=== PATIENT | female | born 1975 | race Caucasian/White ===

== ENCOUNTER 2021-01-21 11:35 | Outpatient (CLI) | payer BC, SELFPAY ==
--- NOTE | 2021-01-21 12:55 | DI.RAD_ITS ---
Exam(s) XR KNEE LT 3V AP,LAT,JANINA EXAM: XR KNEE LT 3V AP,LAT,JANINA CLINICAL HISTORY: left knee swelling, effusion, M25.462. TECHNIQUE: 2D digital imaging was performed. COMPARISON: No exams were available for comparison FINDINGS: BONES: No acute fracture is present. No bony destructive lesion is seen. There are findings of a prio r ACL repair. JOINTS: The knee is normally aligned. No joint effusion is seen. SOFT TISSUE: Normal. IMPRESSION: No acute abnormality. DATA REPOSITORY: RADIATION DOSE DELIVERED:
== END 2021-01-21 11:55 ==
PROVIDERS: PCP Nurse Practitioner Family; Visit Provider Nurse Practitioner Family
DX: M25.562 Pain in left knee (principal); M25.462 Effusion, left knee
CPT/HCPCS: 73562

== ENCOUNTER 2021-04-06 16:36 | Outpatient (REF) | payer BC, SELFPAY ==
--- NOTE | 2021-04-06 15:30 | PAPFT_PTH ---
PATIENT: Nelly Zapata LOC: [facility] U#:[id number] AGE/SX: 45/F ROOM: RE04/06/[address]: CHELA Adler : 1975 BED: DIS: 04/06/2021 SPEC #: [id number] RECD: 04/06/21 18:19 STATUS: GAIL REQ #: [id number] SARITA: 04/06/21 15:[address]: La Ag DEPT: [facility] Cytology RECD BY: Aleyda Pabon ENTERED: 04/06/21 18:20 SP TYPE: PAPFT NELLY DR: Cristhian Dawkins, MEL Tissues: 1 - CX/ENDOCX FOR PAP SMEARS Procedures: PAP THIN PREP/UVM Screening HPV DNA PROBE Comments: [id number]
== END 2021-04-06 16:37 | disposition home or self-care (01) ==
LOC: LBN 16:36
PROVIDERS: PCP Nurse Practitioner Family; Visit Provider Nurse Practitioner Family
DX: Z12.4 Encounter for screening for malignant neoplasm of cervix (principal); Z11.51 Encounter for screening for human papillomavirus (HPV)
CPT/HCPCS: 88142; 87624

== ENCOUNTER 2021-04-08 03:16 | Outpatient (CLI) | payer BC, SELFPAY ==
[2021-04-08 16:34] LABS: Hemoglobin A1C 5.2 % (<5.7)
[2021-04-08 17:21] LABS: ALT 33 U/L (14-59); AST 26 U/L (15-37); Albumin 4.1 g/dL (3.4-5.0); Alkaline Phosphatase 67 U/L (46-116); Anion Gap 7.5 mmol/L (3-11); BUN 13 mg/dL (7-18); Bilirubin, Total 0.4 mg/dL (0.2-1.0); CO2 29.5 mmol/L (21.0-32.0); CREATININE 0.9 mg/dL (0.55-1.02); Calcium 8.8 mg/dL (8.5-10.1); Calculated LDL 112 mg/dL (<100); Chloride 103 mmol/L (98-107); Cholesterol 234 mg/dL (<200); Glucose 119 mg/dL (74-106); HDL Cholesterol 88 mg/dL (40-60); Potassium 3.6 mmol/L (3.5-5.1); Sodium 140 mmol/L (136-145); TSH (W/Ref FT4) 2.97 uIU/mL (0.36-3.74); Total Protein 7.1 g/dL (6.4-8.2); Triglyceride 174 mg/dL (<150)
== END 2021-04-08 03:17 | disposition home or self-care (01) ==
LOC: LBO 03:16
PROVIDERS: PCP Nurse Practitioner Family; Visit Provider Nurse Practitioner Family
DX: Z00.00 Encounter for general adult medical examination without abnormal findings (principal); Z13.1 Encounter for screening for diabetes mellitus; Z13.220 Encounter for screening for lipoid disorders; Z13.29 Encounter for screening for other suspected endocrine disorder
CPT/HCPCS: 36415; 80053; 80061; 83036; 84443

== ENCOUNTER 2021-10-14 17:47 | Outpatient (REF) | payer BC, SELFPAY | END 2021-10-14 17:48 | disposition home or self-care (01) | LOC: LBN 17:47 | PROVIDERS: PCP Nurse Practitioner Family; Visit Provider Physician Assistant Medical | DX: R30.0 Dysuria (principal) | CPT/HCPCS: 87086 ==

== ENCOUNTER 2022-02-15 14:27 | Emergency (ER) | payer BC, SELFPAY ==
[2022-02-15 14:30] VITALS: BP 131/87; PULSE 69; RESP 18; TEMP 36.8; O2SAT 98
--- NOTE | 2022-02-15 14:58 | NUR.NOTE ---
Nursing Note: Animal bite report form faxed to [facility] Officer for follow up. Voice mail message left on his phone to notify him. Becky Luo
[2022-02-15] MEDS: Rabies Immune Globulin 300 UNIT/ML VIAL 1133.98 UNIT IM (15:51)
--- NOTE | 2022-02-15 15:53 | ED.GENADUL_ITS ---
Discharge Plan Disposition Patient Disposition: HOME Condition: Stable Discharge Details Clinical Impression: Encounter for prophylactic administration of rabies immune globulin Primary Care Provider: Cristhian Dawkins ED Provider: Aleyda Lanza Home Meds and New Rx's Prescriptions: Continued cholecalciferol (vitamin D3) 25 mcg (1,000 unit) capsule 25 mcg PO DAILY albuterol sulfate [ProAir HFA] 90 mcg/actuation HFA aerosol inhaler 1 puff inhalation ONCE fluoxetine [Prozac] 20 mg capsule 20 mg PO DAILY Qty: 90 3RF bupropion HCl [Wellbutrin SR] 100 mg tablet sustained-release 12 hr 100 mg PO QAM Qty: 90 3RF metronidazole 0.75 % cream 1 applic topical DAILY Qty: 45 1RF No Action doxycycline hyclate 100 mg tablet 100 mg PO BID 5 Days Qty: 10 0RF Discharge Instructions Additional Instructions: Return for rabies vaccine at a 2, 6, and 13 Return should you develop new or worsening complaints Referrals: Cristhian Dawkins, NANOTECHNOLOGY ENGINEERING TECHNICIAN [Primary Care Provider] - Discharge Data Discharge Date/Time-TO BE ENTERED AT DEPARTURE: 02/15/22 16:11 Medical Decision Making Rabies vaccine and immunoglobulin initiated Given instructions to return a day 3, 7, and 14 for rabies vaccine, ordered Return precautions discussed and patient expressed understanding Medical Records Medical records reviewed: Yes I reviewed the patient's medical records. Lab Data Lab results reviewed: Yes I reviewed the patient's lab results. HPI General Date/Time Provider Initiated Documentation: 02/15/22 14:55 . HPI Narrative: This patient presents with reports of waking up with a bat flying in the room. Room as of last evening. She instructed to come in by her doctor. She denies any known bite. Related Data Home Medications Medication Instructions Recorded Confirmed albuterol sulfate 90 mcg/actuation 1 puff inhalation ONCE 02/07/21 02/19/22 aerosol inhaler (ProAir HFA) cholecalciferol (vitamin D3) 25 25 mcg PO DAILY 02/07/21 02/19/22 mcg (1,000 unit) capsule bupropion HCl 100 mg tablet,12 hr 100 mg PO QAM #90 tabs 06/03/21 02/19/22 sustained-release (Wellbutrin SR) fluoxetine 20 mg capsule (Prozac) 20 mg PO DAILY #90 caps 06/03/21 02/19/22 metronidazole 0.75 % topical cream 1 applic topical DAILY #45 grams 12/23/21 02/19/22 doxycycline hyclate 100 mg tablet 100 mg PO BID 5 days #10 tabs 02/19/22 Previous Rx's Medication Instructions Recorded bupropion HCl 100 mg tablet,12 hr 100 mg PO QAM #90 tabs 06/03/21 sustained-release (Wellbutrin SR) fluoxetine 20 mg capsule (Prozac) 20 mg PO DAILY #90 caps 06/03/21 metronidazole 0.75 % topical cream 1 applic topical DAILY #45 grams 12/23/21 doxycycline hyclate 100 mg tablet 100 mg PO BID 5 days #10 tabs 02/19/22 Allergies Allergy/AdvReac Type Severity Reaction Status Date / Time latex Allergy Unknown Verified 02/19/22 16:29 Penicillins Allergy mild rash Verified 02/19/22 16:29 Sulfa (Sulfonamide Allergy mild rash Verified 02/19/22 16:29 Antibiotics) General Stated Complaint: AnimalBite ZACHARY: 4 Review of Systems Narrative: Review of systems obtained x3 and negative aside from medication HPI PFSH All Active Problems (Updated 02/19/22 @ 18:17 by DAVID Cat) Encounter for prophylactic administration of rabies immune globulin (Acute) Dog bite (Acute) Shoulder pain (Acute) Right hip pain (Acute) Breast lump (Acute) Perioral dermatitis (Acute) on the face History of loop electrosurgical excision procedure (LEEP) (Acute) cervical dysplasia Mild recurrent major depression (Acute) Generalized anxiety disorder (Acute) Medical History (Updated 02/19/22 @ 18:17 by DAVID Cat) Cervical dysplasia Joint pain, knee Major depressive disorder Tear of cruciate ligament of knee Surgical History (Updated 02/10/21 @ 17:37 by Shantelle Smith) H/O arthroscopy of knee Left knee ACL reconstruction H/O section (~2005) H/O cone biopsy of cervix (~2000) H/O oophorectomy History of carpal tunnel release endoscopic x2 History of removal of ovarian cyst right Hx of breast biopsy age 22 years- left and right Family History Mother Depression Cancer LYMPHOMA Father Prostate cancer Hypertension Son Asthma ADHD Daughter Asthma Maternal Grandfather , 80's No problems noted. Paternal Grandfather , 90's Depression Hyperlipidemia Paternal Grandmother Heart disease Hypertension Cancer Skin Cancer Maternal Grandmother , 90's Hypertension Stroke Social History Smoking/Tobacco Use Status: Never Second Hand Exposure: Yes Smoking risk assessment performed?: Yes Alcohol Intake: never Drug use: Never Substance use type: does not use Caregiver/Support person: No Household members: spouse and children Housing: house Communication Needs: None Do you need help understanding health information?: Never Pets and animals: Yes Pets and animals: dog(s), fish and hamster(s) Sexually active: Yes Do you think of yourself as: straight/heterosexual Current gender identity: female What is your relationship status?: How often do you talk on the phone with friends or family?: once per week How often do you get together with friends or relatives?: never Do you belong to any clubs or organized social groups?: no Panel score (0-1 are the most socially isolated patients): 1 What type of physical activity do you participate in: walking, bicycling and other Details: HIKING, ROWING Duration: 30-45 minutes/day Frequency: daily Justina/Jewish: No preference Seatbelt use: always Helmet use: Yes Helmet use: always Drive intox or ride w/intox set key driver: No Do you feel safe at home: Yes Do you feel safe in your relationship?: Yes Exam Const General: cooperative, comfortable and no acute distress Course Vital Signs Vital signs: Vital Signs Temperature 36.8 C 02/15/22 14:30 Pulse 69 02/15/22 14:30 Respiratory Rate 18 02/15/22 14:30 Blood Pressure 131/87 02/15/22 14:30 Pulse Oximetry 98 02/15/22 14:30 Temperature 36.8 C 02/15/22 14:30 Temperature Source Temporal Artery Scan 02/15/22 14:30 Pulse 69 02/15/22 14:30 Respiratory Rate 18 02/15/22 14:30 Respiratory Effort 02/15/22 15:08 Blood Pressure 131/87 02/15/22 14:30 Blood Pressure Position Sitting 02/15/22 14:30 Pulse Oximetry 98 02/15/22 14:30 Oxygen Delivery Method Room Air 02/15/22 14:30 Oxygen Flow Rate 0 02/15/22 14:30
--- NOTE | 2022-02-15 15:58 | NUR.NOTE ---
Nursing Note: Orders for rabies vaccinations faxed to the Infusion Room. Copy given to patient. Becky Luo
== END 2022-02-15 16:11 | disposition home or self-care (01) ==
PROVIDERS: Emergency Provider Physician Assistant; PCP Nurse Practitioner Family
DX: Z20.3 Contact with and (suspected) exposure to rabies (principal); Z29.14 Encounter for prophylactic rabies immune globulin
CPT/HCPCS: 90471; 96372; 99284; 90675; 99283

== ENCOUNTER 2022-02-19 16:14 | Emergency (ER) | payer BC, SELFPAY ==
[2022-02-19 16:24] VITALS: BP 122/76; PULSE 76; RESP 16; TEMP 36.4; O2SAT 100
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
[2022-02-19] MEDS: Acetaminophen 500 MG TAB 1000 MG PO (17:10)
[2022-02-19] MEDS: Ibuprofen 600 MG TAB PO (17:10)
--- NOTE | 2022-02-19 17:15 | DI.RAD_ITS ---
Exam(s) XR FEMUR RT EXAM: XR FEMUR RT CLINICAL HISTORY: lateral mid thigh dog bite, concerned for FB. TECHNIQUE: 2D digital imaging was performed. COMPARISON: No exams were available for comparison FINDINGS: Two views-AP and lateral There is no evidence of right femur fracture. No evidence of knee joint effusion. Bone density norm al. No significant osseous lesions. No obvious degenerative changes in the hip and knee. No radiop aque foreign body. IMPRESSION: No significant radiographic findings. DATA REPOSITORY: RADIATION DOSE DELIVERED:
--- NOTE | 2022-02-19 18:12 | DI.VRAD_ITS ---
PROCEDURE INFORMATION: Exam: XR Right Femur Exam date and time: 02/19/2022 5:50 PM Age: 46 years old Clinical indication: Injury or trauma; Other: Dog bite; Puncture; Thigh or upper leg; Right; Foreign body involvement not specified; Injury date: 02/19/22 TECHNIQUE: Imaging protocol: XR Right femur. Views: 2 views. COMPARISON: No relevant prior studies available. FINDINGS: Bones/joints: Unremarkable. No acute fracture. Soft tissues: No soft tissue gas or foreign body. IMPRESSION: 1. No acute findings. 2. No fracture or focal bone lesion. 3. No soft tissue gas or foreign body. Dictated and Authenticated by: Boom Monteiro MD. Ordering:KATHRIN Garcia MD
[2022-02-19] MEDS: Doxycycline Hyclate 100 MG, 2 CAPS/BTL PO (18:29)
== END 2022-02-19 18:28 | disposition home or self-care (01) ==
PROVIDERS: Emergency Provider Physician Assistant; PCP Nurse Practitioner Family
DX: S71.151A Open bite, right thigh, initial encounter (principal); W54.0XXA Bitten by dog, initial encounter
CPT/HCPCS: 73552; 99283

== ENCOUNTER 2022-03-01 03:03 | Outpatient (RCR) | payer BC, SELFPAY | END 2022-03-18 23:59 | disposition home or self-care (01) | LOC: INF 03:03 | PROVIDERS: PCP Nurse Practitioner Family; Visit Provider Physician Assistant | DX: Z20.3 Contact with and (suspected) exposure to rabies (principal) | CPT/HCPCS: 90471; 90675 ==

== ENCOUNTER → 2022-04-12 01:49 | Outpatient (CLI) | payer BC, SELFPAY ==
--- NOTE | 2022-04-12 09:54 | DI.MAMMO_ITS ---
Exam(s) MAMMO SCREENING EXAM: MAMMO SCREENING CLINICAL HISTORY: screening, Z12.39. TECHNIQUE: Bilateral full field digital CC and MLO mammographic images were obtained with 3D tomosyn thesis and utilizing computer aided detection (CAD). COMPARISON: 2016 through 2019 from [facility] in [facility] FINDINGS: Masses/Architectural Distortion: None seen. This stable circumscribed nodule in the superior right br east seen on the MLO view. Microcalcifications: No suspicious pleomorphic-type are seen. Skin Thickening/Nipple Retraction: None. IMPRESSION: 1. No significant interval change with no specific features of malignancy noted. 2. BI-RADS Category 2 - Negatigve Mammogram with benign findings. Yearly screening mammography is r ecommended. Breast Density - Category D - extremely dense Breast Density Category D: The mammogram demonstrates the patient's breast tissue is dense. Dense ghanshyam ast tissue is very common and is not abnormal but dense breast tissue can make it harder to find canc er on a mammogram. Also, dense breast tissue may increase their breast cancer risk. This information about the result of the mammogram report was provided to the patient to raise their awareness. Use th is report when you speak with the patient about their risks for breast cancer, which includes their f amily history. At that time, you may recommend for more screening tests (Ultrasound or MRI) as they m ight be useful based on their risk. A negative radiographic report should not delay biopsy if a dominant or clinically suspicious mass is present. Up to ten percent of cancers are not identified on mammography. A negative report may reinforce clinical impression. Adenosis and dense breasts may obscure an underlying neoplasm. False positive reports average 6 to 10%.
== END ==
PROVIDERS: PCP Nurse Practitioner Family; Visit Provider Nurse Practitioner Family
DX: Z12.31 Encounter for screening mammogram for malignant neoplasm of breast (principal); R92.8 Other abnormal and inconclusive findings on diagnostic imaging of breast
CPT/HCPCS: 77063; 77067

== ENCOUNTER 2022-05-12 15:11 | Outpatient (REF) | payer BC, SELFPAY ==
[2022-05-12 15:22] LABS: Kit/Specimen SENT
[2022-05-13 14:22] LABS: AFP 8.4 ng/mL; Cigarette smoking status non-Smoker; GA used in risk estimate Scan estimate; IVF Pregnancy No; Initial or repeat testing Initial testing; Insulin dependent diabetes No; Maternal Weight 131 lbs; Number of Fetuses 1; Physician Phone Number 802-748-7300; Prev Pregnancy w/NTD No
[2022-05-20 09:32] LABS: Specimen WB Whole Blood
[2022-05-29 00:59] LABS: Result Summary NEGATIVE; Specimen WB Whole Blood
== END 2022-05-12 15:12 | disposition home or self-care (01) ==
LOC: LBO 15:11
PROVIDERS: PCP Nurse Practitioner Family; Visit Provider Obstetrics & Gynecology
DX: Z34.91 Encounter for supervision of normal pregnancy, unspecified, first trimester (principal); Z36.89 Encounter for other specified antenatal screening; Z3A.09 9 weeks gestation of pregnancy
CPT/HCPCS: 36415; 81329; 81220; 82105

== ENCOUNTER 2022-06-18 02:15 | Outpatient (CLI) | payer BC, SELFPAY ==
[2022-06-18 14:26] LABS: Abs Immature Grans 0.04 10^3/uL (0.0-0.06); Absolute Basophil Count 0.03 10^3/uL (0.0-0.2); Absolute Eosinophil Count 0.15 10^3/uL (0.0-0.7); Absolute Lymphocyte Count 1.98 10^3/uL (1.2-3.4); Absolute Monocyte Count 0.64 10^3/uL (0.1-0.8); Basophils % 0.3; Eosinophils % 1.5; HCT 34.5 % (36.0-46.0); HGB 11.8 g/dL (11.2-15.7); Immature Grans % 0.4; Lymphocytes % 19.5; MCH 30.3 pg (27.0-33.0); MCHC 34.2 % (32.0-36.0); MCV 89 fL (80-95); MPV 9.6 fL (8.0-11.0); Monocytes % 6.3; Platelet Count 251 10^3/uL (130-400); RBC 3.89 10^6/uL (3.93-5.22); RDW 12.5 % (11.7-14.6); RDW-SD 40.3 fL; WBC 10.14 10^3/uL (4.4-10.8)
[2022-06-18 15:54] LABS: TSH (W/Ref FT4) 3.42 uIU/mL (0.36-3.74)
[2022-06-18 18:08] LABS: *AMPHETAMINES SCREEN URINE Negative (Negative); *BARBITURATES SCREEN URINE Negative (Negative); *BENZODIAZEPINES SCREEN URINE Negative (Negative); Cannabinoids THC Negative (Negative); Cocaine Screen,Urine Negative (Negative); METHADONE URINE SCREEN Negative (Negative); OPIATES URINE SCREEN Negative (Negative)
[2022-06-18 18:14] LABS: Tricyclic Antidepressants Negative (Negative)
[2022-06-19 14:53] LABS: Chlamydia Result Negative (Negative); GC Result Negative (Negative)
[2022-06-21 09:52] LABS: Hepatitis C Ab w Rflx HCV PCR Negative (Negative)
[2022-06-21 10:15] LABS: HIV-1/2 Ag & Ab Screen Negative (Negative)
[2022-06-21 10:20] LABS: Hepatitis B Surface Ag Negative (Negative)
[2022-06-21 10:35] LABS: Thyroglobulin Antibody 156 U/mL (<=60); Thyroperoxidase Antibody <28 U/mL (<=60)
[2022-06-21 11:04] LABS: Rubella IgG Ab (UVM) Positive (See Note); Varicella IgG Antibody Positive (See Note)
[2022-06-21 14:43] LABS: Syphilis IgG w/Reflex Nonreactive (Nonreactive)
[2022-06-23 12:27] LABS: Buprenorphine Negative ng/mL (Cutoff: 5.0); Norbuprenorphine Negative ng/mL (Cutoff: 2.5)
== END 2022-06-18 02:16 | disposition home or self-care (01) ==
LOC: LBO 02:15
PROVIDERS: Advanced Practice Midwife; PCP Nurse Practitioner Family; Visit Provider Advanced Practice Midwife
DX: Z34.91 Encounter for supervision of normal pregnancy, unspecified, first trimester; Z83.49 Family history of other endocrine, nutritional and metabolic diseases; R79.89 Other specified abnormal findings of blood chemistry
CPT/HCPCS: 36415; 80307; 86376; 86787; 86803; 86850; 86900; 86901; 87340; 87389; 87491; 87591; 84443; 85025; 86762; 86780; 87086

== ENCOUNTER 2022-07-01 21:12 | Emergency (ER) | payer BC, SELFPAY ==
[2022-07-01] VITALS (9 sets, daily range): BP systolic 121–132; BP diastolic 70–76; PULSE 66–72; RESP 13–19; TEMP 36.7; O2SAT 97–99
--- NOTE | 2022-07-01 21:15 | RT.EKG_ITS ---
APPROVED REPORT Exam: Resting ECG Reason for Exam: pounding heart Patient Location: E HR:70 bpm ECG Measurements Heart Rate 70 AXIS AZ 160 P 55 QRSd 80 QRS 73 QT 375 T 38 QTc 405 Conclusion Sinus rhythm...normal P axis, V-rate 60- 99 PHysicin: no stemi, no significant abnormality
--- NOTE | 2022-07-01 22:05 | W.ED.GENAD ---
Discharge Plan Disposition Patient Disposition: HOME Condition: Stable Discharge Details Clinical Impression: Palpitations Primary Care Provider: Cristhian Dawkins ED Provider: Jamil Mason Home Meds and New Rx's Prescriptions: Continued glucosamine sulfate [Glucosamine] 500 mg tablet 500 mg PO DAILY Rx Instructions: administer with a meal Fish Oil 100-160-1,000 mg capsule PO cholecalciferol (vitamin D3) 25 mcg (1,000 unit) capsule 25 mcg PO DAILY albuterol sulfate [ProAir HFA] 90 mcg/actuation HFA aerosol inhaler 1 puff inhalation ONCE metronidazole 0.75 % cream 1 applic topical DAILY Qty: 45 1RF levothyroxine 25 mcg tablet 25 mcg PO DAILY Qty: 30 5RF bupropion HCl [Wellbutrin SR] 100 mg tablet sustained-release 12 hr 100 mg PO QAM Qty: 90 3RF fluoxetine [Prozac] 20 mg capsule 20 mg PO DAILY Qty: 90 3RF rjnchgkg-rlr-Bk-FA 1 mg Tablet 1 tab PO DAILY Discharge Instructions Instructions: Heart Palpitations (ED) Additional Instructions: At this time your EKG reveals a normal sinus rhythm. We discussed initiating a further work-up including laboratory values, troponin, thyroid studies, D-dimer, etc. At this time you do not want to pursue this work-up which I believe is perfectly reasonable given your overall clinical situation. As we discussed, please watch for new or evolving symptoms and return immediately to the ER. Otherwise I recommend contacting your [facility] tomorrow to discuss your ER visit and need for outpatient reevaluation Medical Decision Making 46-year-old female with a past medical history of anxiety, depression, recently diagnosed thyroid disease, approximately 16 weeks , presents to the ER for what she describes as palpitations that have been present for many years but thinks it may be slightly worse recently, grandmother recently diagnosed with A. fib and she is concerned that she may have the same. EKG was obtained and reveals a sinus rhythm, ventricular rate of 70, no STEMI, no arrhythmia Patient was immediately relieved that her EKG was unremarkable. We had a long discussion regarding her evaluation plan for further evaluation. We discussed obtaining routine screening laboratory values and obtaining a single troponin and we could move forward with a D-dimer for further evaluation of PE. Patient has no chest pain or shortness of breath and I believe that ACS and PE are highly unlikely but given she is present and this is a hypercoagulable state I do believe this work-up is reasonable. Patient is no longer anxious or tearful. At this time she feels well and is relieved given her EKG. I did explain to her that her EKG was a very short period of time and cannot necessarily reflect accurately if she did have an arrhythmia earlier in the night. She does not believe that obtaining laboratory values at this time is necessary. While she has decision-making capacity and I believe this to be perfectly reasonable, I did recommend prompt outpatient [facility] follow-up. She is going to contact the women's wellness office tomorrow and I have placed her on the women's wellness list. She appears well, lungs are clear to auscultation, heart rate in the 70s, O2 level 97% on room air, hemodynamically stable, no pedal edema. We we did discuss outpatient Holter monitor as well if symptoms were to persist. She assures me that she will return to the ER for new or evolving symptoms and will have close follow-up with her women's wellness team Strict discharge and return precautions were provided. Patient understands, is agreeable to this plan, and has no additional questions or concerns upon discharge. This documentation was generated using [employer] dictation system, please disregard any oddities of phrase or misspellings. Medical Records Medical records reviewed: Yes I reviewed the patient's medical records. ECG Data Attestation: I personally reviewed and interpreted this ECG (s) as follows: Interpretation: Sinus rhythm, ventricular rate of 70, no STEMI. HPI General Mode of arrival: ambulatory. Date/Time Provider Initiated Documentation: 07/01/22 21:13. Limitations to Documentation: no limitations. Information obtained by: patient. HPI Narrative: This is a 46-year-old female G3, P2 approximately 16 weeks , past medical history of anxiety, depression, recently diagnosed mild thyroid disease, presenting to the ER for intermittent palpitations. Patient states that the palpitations overall have been going on for quite some time even prior to her but may be are becoming slightly more frequent in nature. Patient states that her grandmother was recently diagnosed with A. fib and she wonders if she could be in A. fib. She denies recent illness or trauma, headache, chest pain, shortness of breath, abdominal pain, nausea, vomiting, vaginal bleeding or discharge. Patient states that she seeks [facility] care here at our facility. She denies history of DVT or PE. Related Data Home Medications Medication Instructions Recorded Confirmed albuterol sulfate 90 mcg/actuation 1 puff inhalation ONCE 02/07/21 07/01/22 aerosol inhaler (ProAir HFA) cholecalciferol (vitamin D3) 25 25 mcg PO DAILY 02/07/21 07/01/22 mcg (1,000 unit) capsule metronidazole 0.75 % topical cream 1 applic topical DAILY #45 grams 12/23/21 07/01/22 glucosamine sulfate 500 mg tablet 500 mg PO DAILY 04/06/22 07/01/22 (Glucosamine) omega 1-ikx-ueb-fish oil 100 cap PO 04/06/22 06/18/22 mg-160 mg-1,000 mg capsule (Fish Oil) levothyroxine 25 mcg tablet 25 mcg PO DAILY #30 tabs 06/21/22 07/01/22 bupropion HCl 100 mg tablet,12 hr 100 mg PO QAM #90 tabs 06/24/22 07/01/22 sustained-release (Wellbutrin SR) fluoxetine 20 mg capsule (Prozac) 20 mg PO DAILY #90 caps 06/24/22 07/01/22 hewfynyf-ppi-Xw-FA 1 mg 1 tab PO DAILY 07/01/22 07/01/22 tablet Previous Rx's Medication Instructions Recorded metronidazole 0.75 % topical cream 1 applic topical DAILY #45 grams 12/23/21 levothyroxine 25 mcg tablet 25 mcg PO DAILY #30 tabs 06/21/22 bupropion HCl 100 mg tablet,12 hr 100 mg PO QAM #90 tabs 06/24/22 sustained-release (Wellbutrin SR) fluoxetine 20 mg capsule (Prozac) 20 mg PO DAILY #90 caps 06/24/22 Allergies Allergy/AdvReac Type Severity Reaction Status Date / Time latex Allergy Unknown Verified 07/01/22 21:29 Penicillins Allergy mild rash Verified 07/01/22 21:29 Sulfa (Sulfonamide Allergy mild rash Verified 07/01/22 21:29 Antibiotics) General Stated Complaint: Palpitatns ZACHARY: 4 Review of Systems Constitutional Constitutional: Denies fever(s) ENT Ears, Nose, Mouth, and Throat: Denies neck pain Cardiovascular Cardiovascular: Denies chest pain, Reports irregular heart rhythm and Denies dyspnea Respiratory Respiratory: Denies cough and Denies dyspnea Gastrointestinal Gastrointestinal: Denies abdominal pain, Denies nausea and Denies vomiting Musculoskeletal Musculoskeletal: Denies back pain and Denies neck pain Integumentary/Breasts Skin/Breast: Denies rash PFSH All Active Problems Palpitations (Acute) Family history of rheumatoid arthritis (Acute) TSH elevation (Acute) Rh negative state in antepartum period (Acute) Generalized anxiety disorder (Acute) Major depressive disorder (Chronic) (Acute) Bleeding in early (Acute) Cyst of bursa (Acute) Missed menses (Acute) Hematoma (Acute) From dog bite Medical History Breast lump Cervical dysplasia Cyst of knee joint Family history of breast cancer Family history of thyroid disease pt's mother and mgm Fibrocystic disease of both breasts Joint pain, knee Mild recurrent major depression Perioral dermatitis on the face Right hip pain Tear of cruciate ligament of knee Surgical History H/O arthroscopy of knee Left knee ACL reconstruction H/O section (~2005) H/O cone biopsy of cervix (~2000) H/O oophorectomy History of carpal tunnel release endoscopic x2 History of loop electrosurgical excision procedure (LEEP) cervical dysplasia History of removal of ovarian cyst right Hx of breast biopsy age 22 years- left and right Family History Mother Depression Cancer LYMPHOMA Osteoporosis Hypothyroid Rheumatoid aortitis Thyroid goiter Father Prostate cancer Hypertension Son Asthma ADHD Daughter Asthma Maternal Grandfather , 80's No problems noted. Paternal Grandfather , 90's Depression Hyperlipidemia Stroke Paternal Grandmother Heart disease Hypertension Cancer Skin Cancer Maternal Grandmother Congestive heart failure Heart disease AFIB Osteoporosis Hypothyroid Rheumatoid aortitis Maternal Aunt Breast cancer Maternal Aunt Breast cancer Social History Smoking/Tobacco Use Status: Never Second Hand Exposure: Yes Smoking risk assessment performed?: Yes Alcohol Intake: never Drug use: Never Substance use type: does not use Caregiver/Support person: No Household members: spouse and children Housing: house Communication Needs: None Do you need help understanding health information?: Never Pets and animals: Yes Pets and animals: dog(s), fish and hamster(s) Sexually active: Yes Do you think of yourself as: straight/heterosexual Current gender identity: female What is your relationship status?: How often do you talk on the phone with friends or family?: twice per week How often do you get together with friends or relatives?: once per week How often do you attend mu-ism or mandaeism services?: 1-3 times per year Do you belong to any clubs or organized social groups?: no Panel score (0-1 are the most socially isolated patients): 2 What type of physical activity do you participate in: walking, bicycling, swimming and other Details: HIKING, ROWING Duration: 45-60 minutes/day Frequency: daily Justina/Moravian: No preference Special justina needs: No Seatbelt use: always Helmet use: Yes Helmet use: always Drive intox or ride w/intox airport driver: No Do you feel safe at home: Yes Do you feel safe in your relationship?: Yes History History 3 Para 2 Hx # Term Pregnancies 2 Multiple births Hx # Pregnancies Ectopic pregnancies AB induced Hx Number of Living Children 2 AB spontaneous Past Pregnancies Del. Date GA/Weeks # Preg Succ Route Wgt Sex Labor Lgth Anesthesia Location [facility] 04/27/06 9 No Yes 2976.7 g Male [place] 04/23/11 41 No Yes vaginal 3685.438 g Female stenotic cervix due to LEEP. 8 hours [place] Delivery Date: 04/27/06 Last Updated by: Jaclyn Holman CNM unsuccessful version with the next day for breech. Residual tailbone pain. Delivery Date: 04/23/11 Last Updated by: Jaclyn Holman CNM IOL and Exam Const General: cooperative, healthy appearing, comfortable, no acute distress and anxious (Slightly tearful) Orientation: alert, awake and oriented x3 HENMT Head: normal to inspection, normocephalic and atraumatic Face and sinus: normal facial exam Mouth: moist mucous membranes Eyes General: appearance normal, both eyes and all related structures Conjunctivae: conjunctivae normal Neck Neck: normal visual inspection, full ROM, trachea midline and supple Chest Chest: normal inspection of the chest and normal palpation of entire chest wall Resp Effort & Inspection: normal respiratory effort and able to speak in complete sentences Auscultation: clear to auscultation bilaterally Cardio Rate: regular rate Rhythm: regular rhythm GI Palpation: soft, not firm, no guarding and nontender Other: Consistent with approximately 16 weeks Back/Spine/Pelvis Back: no CVA tenderness and No back tenderness Skin General skin exam: no rashes or lesions noted Neuro General: patient alert, patient awake, moves all extremities and no focal motor deficits Cognition: normal cognition Speech: speech normal Gait: normal gait Motor: muscle tone normal throughout Sensory Exam: no sensory deficits noted Extrem General: normal to inspection, full ROM, capillary refill normal, no pedal edema and no calf tenderness Psych Appearance: grossly normal Mental Status: mental status grossly normal Course Vital Signs Vital signs: Vital Signs Temperature 36.7 C 07/01/22 21:25 Pulse 72 07/01/22 21:25 Respiratory Rate 17 07/01/22 21:25 Blood Pressure 132/74 07/01/22 21:25 Pulse Oximetry 99 07/01/22 21:25 Temperature 36.7 C 07/01/22 21:25 Temperature Source Temporal Artery Scan 07/01/22 21:25 Pulse 72 07/01/22 21:25 Respiratory Rate 17 07/01/22 21:25 Respiratory Effort 07/01/22 21:25 Blood Pressure 132/74 07/01/22 21:25 Blood Pressure Position Supine 07/01/22 21:25 Pulse Oximetry 99 07/01/22 21:25 Oxygen Delivery Method Room Air 07/01/22 21:25 Oxygen Flow Rate 0 07/01/22 21:25 Pain Level 5 07/01/22 21:25
--- NOTE | 2022-07-01 22:19 | NUR.NOTE ---
referral [facility]ed to [facility] to f/u ann-marie, 07/02/22 if possible with palpitations during .Nursing Note:
== END 2022-07-01 22:19 | disposition home or self-care (01) ==
PROVIDERS: Emergency Provider Physician Assistant; PCP Nurse Practitioner Family
DX: O99.891 Other specified diseases and conditions complicating pregnancy (principal); R00.2 Palpitations; Z3A.16 16 weeks gestation of pregnancy; O09.522 Supervision of elderly multigravida, second trimester
CPT/HCPCS: 36415; 93005; 99283; 93010; 99282

== ENCOUNTER 2022-07-16 13:53 | Outpatient (CLI) | payer BC, SELFPAY ==
[2022-07-19 12:25] LABS: AFP 74.7 ng/mL; Cigarette smoking status non-Smoker; GA used in risk estimate Scan estimate; IVF Pregnancy No; Initial or repeat testing Initial testing; Insulin dependent diabetes No; Maternal Weight 142 lbs; Number of Fetuses 1; Physician Phone Number 802-748-7300; Prev Pregnancy w/NTD No; RECOMMENDED FOLLOW UP None.; Results Summary Normal risk
== END 2022-07-16 13:54 | disposition home or self-care (01) ==
LOC: LBO 13:54
PROVIDERS: PCP Nurse Practitioner Family; Visit Provider Obstetrics & Gynecology
DX: O09.523 Supervision of elderly multigravida, third trimester (principal)
CPT/HCPCS: 36415; 82105; 84443

== ENCOUNTER 2022-08-19 03:39 | Outpatient (CLI) | payer BC, SELFPAY ==
[2022-08-19 15:29] LABS: TSH (W/Ref FT4) 1.93 uIU/mL (0.36-3.74)
== END 2022-08-19 03:40 | disposition home or self-care (01) ==
LOC: LBO 03:39
PROVIDERS: PCP Nurse Practitioner Family; Visit Provider Obstetrics & Gynecology
DX: O99.892 Other specified diseases and conditions complicating childbirth (principal); R00.2 Palpitations; R94.6 Abnormal results of thyroid function studies; Z3A.23 23 weeks gestation of pregnancy
CPT/HCPCS: 36415; 84443

== ENCOUNTER 2022-10-07 04:06 | Outpatient (CLI) | payer BC, SELFPAY ==
[2022-10-07 12:49] LABS: Abs Immature Grans 0.08 10^3/uL (0.0-0.06); Absolute Basophil Count 0.03 10^3/uL (0.0-0.2); Absolute Lymphocyte Count 2.09 10^3/uL (1.2-3.4); Absolute Monocyte Count 0.59 10^3/uL (0.1-0.8); Absolute Neutrophil Count 7.28 10^3/uL (1.2-6.7); Basophils % 0.3; HCT 32.8 % (36.0-46.0); HGB 11.1 g/dL (11.2-15.7); Immature Grans % 0.8; Lymphocytes % 20.6; MCH 30.2 pg (27.0-33.0); MCHC 33.8 % (32.0-36.0); MCV 89 fL (80-95); MPV 10.2 fL (8.0-11.0); Monocytes % 5.8; Neutrophils % 71.5; Platelet Count 228 10^3/uL (130-400); RBC 3.67 10^6/uL (3.93-5.22); RDW 13.2 % (11.7-14.6); RDW-SD 42.7 fL; WBC 10.17 10^3/uL (4.4-10.8)
[2022-10-07 14:13] LABS: Glucose,1 Hr (Glucola) 102 mg/dL (80-140)
[2022-10-07 14:15] LABS: ALT 32 U/L (14-59); AST 36 U/L (15-37); Albumin 2.5 g/dL (3.4-5.0); Alkaline Phosphatase 108 U/L (46-116); Anion Gap 6.7 mmol/L (3-11); BUN 10 mg/dL (7-18); Bilirubin, Total 0.2 mg/dL (0.2-1.0); CO2 27.3 mmol/L (21.0-32.0); CREATININE 0.7 mg/dL (0.55-1.02); Calcium 9.4 mg/dL (8.5-10.1); Chloride 103 mmol/L (98-107); Estimated GFR 108.62 (mL/min/1.73m2); Glucose 101 mg/dL (74-106); Potassium 3.5 mmol/L (3.5-5.1); Sodium 137 mmol/L (136-145); Total Protein 6.5 g/dL (6.4-8.2)
== END 2022-10-07 04:07 | disposition home or self-care (01) ==
LOC: LBO 04:06
PROVIDERS: Obstetrics & Gynecology; PCP Nurse Practitioner Family; Visit Provider Obstetrics & Gynecology
DX: O16.3 Unspecified maternal hypertension, third trimester (principal); O09.523 Supervision of elderly multigravida, third trimester; O34.211 Maternal care for low transverse scar from previous cesarean delivery; Z3A.30 30 weeks gestation of pregnancy
CPT/HCPCS: 36415; 80053; 82950; 85025

== ENCOUNTER 2022-10-07 08:46 | Outpatient (CLI) | payer BC, SELFPAY ==
[2022-10-07 09:05] VITALS: BP 131/79; PULSE 86
[2022-10-07 09:50] LABS: COMMENT (LAB VIEW ONLY) 90.72 mg/dL; PROTEIN 20.3 mg/dL; Prot/Crea Ur Ratio 0.22
[2022-10-07 10:11] VITALS: BP 142/79; PULSE 88
--- NOTE | 2022-10-07 10:47 | W.OBNST ---
NST Evaluation NST Evaluation NST Results: Reactive Note RANJANA and Presentation
[2022-10-07 11:05] VITALS: BP 131/79; PULSE 86; TEMP 36.4
--- NOTE | 2022-10-07 11:15 | W.OBNST ---
Date of service: 10/07/22 Time of Service: 11:00 NST Evaluation Reason for NST Reasons for Nonstress Test: GESTATIONAL HYPERTENSION Reason for NST Other: Pt reported high BP on at home cuff Gestational Age Gestational Age in Weeks and Days: 30 Weeks and 3Days Test and Monitor Explained Test/Monitor Explained: Test Explained, Monitor Explained and Patient Verbalized Understanding Vital Signs Blood Pressure: 131/79 Pulse: 86 Temperature: 97.5 F Urine Results Urine Protein: Positive Urine Ketones: Negative Urine Glucose: Negative Urine Blood: Negative NST Information Date on Monitor: 10/07/22 Time on Monitor: 09:04 Date off Monitor: 10/07/22 Time off Monitor: 10:12 Total Time on Monitor: 68 NST Interventions: Notify Provider and Other Contraction Frequency: Occasional NST Evaluation Patient States Movement: Present FHR Baseline: 150 Variability: Moderate 6-25 bpm Accelerations: 15x15 Decelerations: None NST Results: Reactive Note N/A NST Note Note: Urine protein/creatinine ratio wnl. Will add CMP to labs being done later today. Pt likely has gestational HTN. Will return next week for BP check. Reviewed reasons to call. NST Reviewed and Verified by: Irma Trejo
[2022-10-07 11:16] VITALS: BP 131/79; PULSE 86; TEMP 36.4
[2022-10-07 11:42] VITALS: BP 131/76; PULSE 85
[2022-10-08 01:44] VITALS: BP 131/77; PULSE 74
== END 2022-10-07 12:15 | disposition home or self-care (01) ==
LOC: BCD 08:47 → OBS 08:53
PROVIDERS: PCP Nurse Practitioner Family; Visit Provider Obstetrics & Gynecology
DX: O13.9 Gestational [pregnancy-induced] hypertension without significant proteinuria, unspecified trimester (principal); O09.523 Supervision of elderly multigravida, third trimester; Z3A.30 30 weeks gestation of pregnancy
CPT/HCPCS: 59025; 82565; 84156

== ENCOUNTER 2022-10-21 01:24 | Outpatient (CLI) | payer BC, SELFPAY ==
--- NOTE | 2022-10-21 07:30 | DI.US_ITS ---
Exam(s) US OB RANJANA WEIGHT EXAM: US OB RANJANA WEIGHT CLINICAL HISTORY: growth,ama,O09.529. TECHNIQUE: Transabdominal obstetrical ultrasound performed. COMPARISON: No exams were available for comparison FINDINGS:: Number of fetuses: One. position: Variable Placental location: Anterior no evidence of previa. BIOMETRIC DATA: BPD: 85mm = 34+1 weeks HC: 315mm = 35+2 weeks AC: 305 mm = 34+3 weeks FL: 62 mm = 32+ 0 weeks EFW: 2293 Gms = 83% Composite Age: 34+ 0 weeks EDC: 02 December 2022 Heart Rate: 147BPM Amniotic fluid index: 15.4 cm. Amount of fluid is visually within normal limits. IMPRESSION: size is measuring large for dates. DATA REPOSITORY:
== END 2022-10-21 01:44 ==
LOC: DI 01:24
PROVIDERS: PCP Nurse Practitioner Family; Visit Provider Obstetrics & Gynecology
DX: O09.523 Supervision of elderly multigravida, third trimester (principal)
CPT/HCPCS: 76816

== ENCOUNTER 2022-10-26 07:07 | Outpatient (CLI) | payer BC, SELFPAY ==
[2022-10-26 13:16] VITALS: BP 130/81; PULSE 79; TEMP 36.9
[2022-10-26 13:19] VITALS: BP 130/81; PULSE 79; TEMP 36.9
[2022-10-26] MEDS: Lactated Ringers 500 ML 999 ML IV (14:31)
[2022-10-26] MEDS: Ondansetron 4 MG/2 ML VIAL IVP (14:32)
--- NOTE | 2022-10-26 15:08 | PDOC.NST_ITS ---
Date of service: 10/26/22 Time of Service: 15:08 NST Evaluation Reason for NST Reasons for Nonstress Test: OTHER, SEE COMMENT Reason for NST Other: Elevated blood pressures Gestational Age Gestational Age in Weeks and Days: 33 Weeks and 1Days Test and Monitor Explained Test/Monitor Explained: Test Explained, Monitor Explained and Patient Verbalized Understanding Vital Signs Blood Pressure: 130/81 Pulse: 79 Temperature: 98.4 F Urine Results Urine Protein: Negative Urine Ketones: Negative Urine Glucose: Negative Urine Blood: Negative NST Information Date on Monitor: 10/26/22 Time on Monitor: 13:14 NST Evaluation Patient States Movement: Present FHR Baseline: 135 Variability: Moderate 6-25 bpm Accelerations: 15x15 Decelerations: None NST Results: Reactive Note N/A NST Note Note: Patient was seen while on the center for nonstress testing. She was having irregular contractions. Overall, she was not feeling any contractions, nor feeling any signs of labor. She is feeling somewhat fatigued, and nauseated and has had poor oral intake today. She received IV hydration with significant improvement. She also received 1 dose of Zofran and a prescription for Zofran was sent to the pharmacy. She will continue her normal routine, increase her fluid intake. She does have a consultation visit with [facility] on Tuesday. She will continue twice weekly surveillance. NST Reviewed and Verified by: Lorena Cobb
[2022-10-26 15:09] VITALS: BP 130/81; PULSE 79; TEMP 36.9
== END 2022-10-26 15:08 | disposition home or self-care (01) ==
LOC: BCD 07:44 → OBS 13:07
PROVIDERS: PCP Nurse Practitioner Family; Visit Provider Obstetrics & Gynecology
DX: Z3A.33 33 weeks gestation of pregnancy; O16.3 Unspecified maternal hypertension, third trimester
CPT/HCPCS: 59025; 96360; 96361; 96374; J2405

== ENCOUNTER 2022-10-29 08:50 | Outpatient (CLI) | payer BC, SELFPAY ==
[2022-10-29 13:35] VITALS: BP 131/76; PULSE 81; TEMP 36.8
[2022-10-29 15:02] VITALS: BP 131/76; PULSE 81; TEMP 36.8
--- NOTE | 2022-10-29 15:02 | W.OBNST ---
Date of service: 10/29/22 Time of Service: 15:02 NST Evaluation Reason for NST Reasons for Nonstress Test: OTHER, SEE COMMENT Reason for NST Other: Elevated BP Gestational Age Gestational Age in Weeks and Days: 33 Weeks and 4Days Test and Monitor Explained Test/Monitor Explained: Test Explained, Monitor Explained and Patient Verbalized Understanding Vital Signs Blood Pressure: 131/76 Pulse: 81 Temperature: 98.2 F Urine Results Urine Protein: Negative Urine Ketones: Negative Urine Glucose: Negative Urine Blood: Negative NST Information Date on Monitor: 10/29/22 Time on Monitor: 13:12 Date off Monitor: 10/29/22 Time off Monitor: 14:20 Total Time on Monitor: 68 NST Interventions: PO Hydration, Reposition Patient and Notify Provider Contraction Frequency: Occasional NST Evaluation Patient States Movement: Present FHR Baseline: 135 Variability: Moderate 6-25 bpm Accelerations: 15x15 Decelerations: None NST Results: Reactive Note N/A NST Note Note: Reactive, category 1 nonstress test. NST Reviewed and Verified by: Lorena Cobb
== END 2022-10-29 14:30 | disposition home or self-care (01) ==
LOC: BCD 08:51 → OBS 13:32
PROVIDERS: PCP Nurse Practitioner Family; Visit Provider Obstetrics & Gynecology
DX: O16.3 Unspecified maternal hypertension, third trimester (principal); Z3A.33 33 weeks gestation of pregnancy
CPT/HCPCS: 59025

== ENCOUNTER 2022-11-02 11:41 | Outpatient (CLI) | payer BC, SELFPAY ==
[2022-11-02 13:09] VITALS: BP 132/75; PULSE 79
[2022-11-02 13:12] VITALS: BP 132/75; PULSE 79
[2022-11-02 14:22] VITALS: BP 132/75; PULSE 79
[2022-11-02 17:14] VITALS: BP 132/75; PULSE 79
--- NOTE | 2022-11-02 17:14 | W.OBNST ---
Date of service: 11/02/22 Time of Service: 17:14 NST Evaluation Reason for NST Reasons for Nonstress Test: ADVANCED MATERNAL AGE Gestational Age Gestational Age in Weeks and Days: 34 Weeks and 1Days Test and Monitor Explained Test/Monitor Explained: Test Explained, Monitor Explained and Patient Verbalized Understanding Vital Signs Blood Pressure: 132/75 Pulse: 79 NST Information Date on Monitor: 11/02/22 Time on Monitor: 13:05 Date off Monitor: 11/02/22 Time off Monitor: 14:32 Total Time on Monitor: 87 NST Interventions: PO Hydration, Reposition Patient and Notify Provider Contraction Frequency: rare NST Evaluation Patient States Movement: Present FHR Baseline: 140 Variability: Moderate 6-25 bpm Accelerations: 15x15 and 10x10 Decelerations: None NST Results: Questionable Note N/A NST Note Note: Category 1 reactive nonstress test NST Reviewed and Verified by: Lorena Cobb
== END 2022-11-02 14:32 | disposition home or self-care (01) ==
LOC: BCD 11:42 → OBS 13:05
PROVIDERS: PCP Nurse Practitioner Family; Visit Provider Obstetrics & Gynecology
DX: O16.3 Unspecified maternal hypertension, third trimester (principal); O09.523 Supervision of elderly multigravida, third trimester; Z3A.34 34 weeks gestation of pregnancy
CPT/HCPCS: 59025

== ENCOUNTER 2022-11-05 07:24 | Outpatient (CLI) | payer BC, SELFPAY ==
[2022-11-05 13:11] VITALS: BP 142/78; PULSE 82; TEMP 37
[2022-11-05 13:29] VITALS: BP 142/78; PULSE 82
--- NOTE | 2022-11-24 08:46 | W.OBNST ---
Date of service: 11/05/22 Time of Service: 13:30 NST Evaluation Reason for NST Reasons for Nonstress Test: GESTATIONAL HYPERTENSION Gestational Age Gestational Age in Weeks and Days: 37 Weeks and 0Days Test and Monitor Explained Test/Monitor Explained: Test Explained, Monitor Explained and Patient Verbalized Understanding Vital Signs Blood Pressure: 142/78 Pulse: 82 Temperature: 98.6 F NST Information Date on Monitor: 11/05/22 Time on Monitor: 13:15 Date off Monitor: 11/05/22 Time off Monitor: 13:20 Total Time on Monitor: 5 NST Interventions: PO Hydration NST Evaluation Patient States Movement: Present FHR Baseline: 140 Variability: Moderate 6-25 bpm Accelerations: 15x15 Decelerations: None NST Results: Reactive Note N/A NST Note NST Reviewed and Verified by: Irma Trejo
[2022-11-24 08:47] VITALS: BP 142/78; PULSE 82; TEMP 37
== END 2022-11-05 13:25 | disposition home or self-care (01) ==
LOC: BCD 07:25 → OBS 13:10
PROVIDERS: PCP Nurse Practitioner Family; Visit Provider Obstetrics & Gynecology
DX: O13.3 Gestational [pregnancy-induced] hypertension without significant proteinuria, third trimester (principal); Z3A.34 34 weeks gestation of pregnancy; O09.523 Supervision of elderly multigravida, third trimester
CPT/HCPCS: 59025

== ENCOUNTER 2022-11-08 12:00 | Outpatient (CLI) | payer BC, SELFPAY ==
[2022-11-08 13:17] VITALS: BP 141/70; PULSE 77; TEMP 37.1
[2022-11-08 13:41] VITALS: BP 141/70; PULSE 77
--- NOTE | 2022-11-08 16:40 | W.OBNST ---
Date of service: 11/08/22 Time of Service: 13:00 NST Evaluation Reason for NST Reasons for Nonstress Test: GESTATIONAL HYPERTENSION Gestational Age Gestational Age in Weeks and Days: 35 Weeks and 0Days Test and Monitor Explained Test/Monitor Explained: Test Explained, Monitor Explained and Patient Verbalized Understanding Vital Signs Blood Pressure: 141/70 Pulse: 77 Temperature: 98.8 F Urine Results Urine Protein: Negative Urine Ketones: Negative Urine Glucose: Negative Urine Blood: Negative NST Information Date on Monitor: 11/08/22 Time on Monitor: 13:13 Date off Monitor: 11/08/22 Time off Monitor: 14:00 Total Time on Monitor: 47 NST Interventions: PO Hydration NST Evaluation Patient States Movement: Present FHR Baseline: 135 Variability: Moderate 6-25 bpm Accelerations: 15x15 Decelerations: None NST Results: Reactive Note N/A NST Note NST Reviewed and Verified by: Irma Trejo
[2022-11-08 16:41] VITALS: BP 141/70; PULSE 77; TEMP 37.1
== END 2022-11-08 14:05 | disposition home or self-care (01) ==
LOC: BCD 12:00 → OBS 13:16
PROVIDERS: PCP Nurse Practitioner Family; Visit Provider Obstetrics & Gynecology
DX: O13.3 Gestational [pregnancy-induced] hypertension without significant proteinuria, third trimester (principal); Z3A.35 35 weeks gestation of pregnancy
CPT/HCPCS: 59025

== ENCOUNTER 2022-11-11 06:57 | Outpatient (CLI) | payer BC, SELFPAY ==
[2022-11-11 13:12] VITALS: BP 132/78; PULSE 77; TEMP 37.1
[2022-11-11 13:32] VITALS: BP 132/78; PULSE 77
--- NOTE | 2022-11-11 16:31 | PDOC.NST_ITS ---
Date of service: 11/11/22 Time of Service: 16:31 NST Evaluation Reason for NST Reasons for Nonstress Test: GESTATIONAL HYPERTENSION Reason for NST Other: Advanced maternal age Gestational Age Gestational Age in Weeks and Days: 35 Weeks and 3Days Test and Monitor Explained Test/Monitor Explained: Test Explained, Monitor Explained and Patient Verbalized Understanding Vital Signs Blood Pressure: 132/78 Pulse: 77 Temperature: 98.8 F NST Information Date on Monitor: 11/11/22 Time on Monitor: 13:13 Date off Monitor: 11/11/22 Time off Monitor: 14:00 Total Time on Monitor: 47 NST Interventions: PO Hydration Contraction Frequency: irregular. Mild per pt report NST Evaluation Patient States Movement: Present FHR Baseline: 135 Variability: Moderate 6-25 bpm Accelerations: 15x15 Decelerations: None NST Results: Reactive Note N/A NST Note Note: Pt presents for scheduled NST. Reactive. Pt not uncomfortable with irreg contractions. SVE deferred. She has appt at [facility] next week plan to perform u/s for growth. Pt is scheduled for IOL at 37w EGA at [facility]. She will f/u at for repeat NST 11/15/22. NST Reviewed and Verified by: Charlene Cr
[2022-11-11 16:33] VITALS: BP 132/78; PULSE 77; TEMP 37.1
== END 2022-11-11 14:07 | disposition home or self-care (01) ==
LOC: BCD 07:00 → OBS 13:10
PROVIDERS: PCP Nurse Practitioner Family; Visit Provider Obstetrics & Gynecology Gynecology
DX: O13.3 Gestational [pregnancy-induced] hypertension without significant proteinuria, third trimester (principal); O09.523 Supervision of elderly multigravida, third trimester; Z3A.35 35 weeks gestation of pregnancy
CPT/HCPCS: 59025

== ENCOUNTER 2022-11-15 06:45 | Outpatient (CLI) | payer BC, SELFPAY ==
[2022-11-15 08:39] VITALS: BP 140/82; PULSE 74
[2022-11-15 08:46] VITALS: BP 140/82; PULSE 74; TEMP 36.5
[2022-11-15 09:07] LABS: Abs Immature Grans 0.07 10^3/uL (0.0-0.06); Absolute Basophil Count 0.02 10^3/uL (0.0-0.2); Absolute Lymphocyte Count 1.83 10^3/uL (1.2-3.4); Absolute Monocyte Count 0.52 10^3/uL (0.1-0.8); Absolute Neutrophil Count 5.56 10^3/uL (1.2-6.7); Basophils % 0.2; Eosinophils % 1.2; HCT 31.9 % (36.0-46.0); HGB 10.5 g/dL (11.2-15.7); Immature Grans % 0.9; Lymphocytes % 22.6; MCH 29.2 pg (27.0-33.0); MCHC 32.9 % (32.0-36.0); MCV 89 fL (80-95); MPV 10.8 fL (8.0-11.0); Monocytes % 6.4; Neutrophils % 68.7; Platelet Count 161 10^3/uL (130-400); RBC 3.59 10^6/uL (3.93-5.22); RDW 13.2 % (11.7-14.6); RDW-SD 43.1 fL
[2022-11-15 09:09] VITALS: BP 129/81; PULSE 73
--- NOTE | 2022-11-15 09:11 | PDOC.NST_ITS ---
Date of service: 11/15/22 Time of Service: 09:11 NST Evaluation Reason for NST Reasons for Nonstress Test: GESTATIONAL HYPERTENSION Gestational Age Gestational Age in Weeks and Days: 36 Weeks and 0Days Test and Monitor Explained Test/Monitor Explained: Test Explained, Monitor Explained and Patient Verbalized Understanding Vital Signs Blood Pressure: 140/82 Pulse: 74 Temperature: 97.7 F NST Information Date on Monitor: 11/15/22 Time on Monitor: 08:15 NST Interventions: PO Hydration Contraction Frequency: Occasional NST Evaluation Patient States Movement: Present FHR Baseline: 145 Variability: Moderate 6-25 bpm Accelerations: 15x15 Decelerations: None NST Results: Reactive Note N/A NST Note Note: Reactive, category 1 nonstress test. Mild elevated blood pressure upon admission, with improvement after rest. CBC, CMP, urine protein creatinine ratio sent to the lab. We will follow-up with results. Patient has scheduled appointment at [facility] for evaluation and scheduling of induction. All questions were answered per nursing. NST Reviewed and Verified by: Lorena Cobb
[2022-11-15 09:12] VITALS: BP 140/82; PULSE 74; TEMP 36.5
[2022-11-15 09:23] LABS: ALT 24 U/L (14-59); AST 26 U/L (15-37); Albumin 2.1 g/dL (3.4-5.0); Alkaline Phosphatase 138 U/L (46-116); Anion Gap 8.4 mmol/L (3-11); BUN 13 mg/dL (7-18); Bilirubin, Total 0.1 mg/dL (0.2-1.0); CO2 24.6 mmol/L (21.0-32.0); CREATININE 0.9 mg/dL (0.55-1.02); Calcium 9.6 mg/dL (8.5-10.1); Chloride 105 mmol/L (98-107); Estimated GFR 80.34 (mL/min/1.73m2); Glucose 109 mg/dL (74-106); Potassium 3.8 mmol/L (3.5-5.1); Sodium 138 mmol/L (136-145); Total Protein 5.8 g/dL (6.4-8.2)
[2022-11-15 09:58] LABS: COMMENT (LAB VIEW ONLY) 50.47 mg/dL; PROTEIN 10.4 mg/dL
== END 2022-11-15 09:15 | disposition home or self-care (01) ==
LOC: BCD 06:46 → OBS 08:21
PROVIDERS: PCP Nurse Practitioner Family; Visit Provider Obstetrics & Gynecology
DX: O13.3 Gestational [pregnancy-induced] hypertension without significant proteinuria, third trimester (principal); Z3A.36 36 weeks gestation of pregnancy
CPT/HCPCS: 59025; 36415; 80053; 82565; 84156; 85025

== ENCOUNTER 2022-11-22 11:45 | Outpatient (CLI) | payer BC, SELFPAY ==
[2022-11-22 12:00] VITALS: BP 129/78; PULSE 75; TEMP 36.7
[2022-11-22 12:11] VITALS: BP 129/78; PULSE 75; TEMP 36.7
--- NOTE | 2022-11-22 12:11 | W.OBNST ---
Date of service: 11/22/22 Time of Service: 12:11 NST Evaluation Reason for NST Reasons for Nonstress Test: GESTATIONAL HYPERTENSION Gestational Age Gestational Age in Weeks and Days: 37 Weeks and 0Days Test and Monitor Explained Test/Monitor Explained: Test Explained, Monitor Explained and Patient Verbalized Understanding Vital Signs Blood Pressure: 129/78 Pulse: 75 Temperature: 98.1 F Urine Results Urine Protein: Negative Urine Ketones: Negative Urine Glucose: Negative Urine Blood: Negative NST Information Date on Monitor: 11/22/22 Time on Monitor: 11:10 Date off Monitor: 11/22/22 Time off Monitor: 11:32 Total Time on Monitor: 22 NST Interventions: None Contraction Frequency: irregular NST Evaluation Patient States Movement: Present FHR Baseline: 145 Variability: Moderate 6-25 bpm Accelerations: 15x15 Decelerations: None NST Results: Reactive Note N/A NST Note Note: Category 1, reactive nonstress test. NST Reviewed and Verified by: Lorena Cobb
== END 2022-11-22 12:08 | disposition home or self-care (01) ==
LOC: BCD 11:45 → OBS 11:53
PROVIDERS: PCP Nurse Practitioner Family; Visit Provider Obstetrics & Gynecology
DX: O13.3 Gestational [pregnancy-induced] hypertension without significant proteinuria, third trimester (principal); Z3A.37 37 weeks gestation of pregnancy
CPT/HCPCS: 59025

== ENCOUNTER 2022-11-25 08:50 | Outpatient (CLI) | payer BC, SELFPAY ==
[2022-11-25 11:21] VITALS: BP 144/86; PULSE 78; TEMP 36.8
[2022-11-25 11:33] VITALS: BP 144/86; PULSE 78
[2022-11-25 11:48] VITALS: BP 133/79; PULSE 76
[2022-11-25 13:50] VITALS: BP 144/86; PULSE 78; TEMP 36.8
--- NOTE | 2022-11-25 13:50 | PDOC.NST_ITS ---
Date of service: 11/25/22 Time of Service: 13:50 NST Evaluation Reason for NST Reasons for Nonstress Test: GESTATIONAL HYPERTENSION Reason for NST Other: AMA Gestational Age Gestational Age in Weeks and Days: 37 Weeks and 3Days Test and Monitor Explained Test/Monitor Explained: Test Explained, Monitor Explained and Patient Verbalized Understanding Vital Signs Blood Pressure: 144/86 Pulse: 78 Temperature: 98.2 F NST Information Date on Monitor: 11/25/22 Time on Monitor: 11:14 Date off Monitor: 11/25/22 Time off Monitor: 11:48 Total Time on Monitor: 34 NST Interventions: PO Hydration NST Evaluation Patient States Movement: Present FHR Baseline: 145 Variability: Moderate 6-25 bpm Accelerations: 15x15 and 10x10 NST Results: Reactive Note N/A NST Note Note: Category 1, reactive nonstress test, occasional irregular contractions. Induction scheduled at [facility] on 11/27/2022. NST Reviewed and Verified by: Lorena Cobb
== END 2022-11-25 11:50 | disposition home or self-care (01) ==
LOC: BCD 08:54 → OBS 11:19
PROVIDERS: PCP Nurse Practitioner Family; Visit Provider Obstetrics & Gynecology
DX: O13.3 Gestational [pregnancy-induced] hypertension without significant proteinuria, third trimester (principal); Z3A.37 37 weeks gestation of pregnancy
CPT/HCPCS: 59025

== ENCOUNTER 2022-12-02 15:43 | Emergency (ER) | payer BC, SELFPAY ==
--- NOTE | 2022-12-02 | DI.US_ITS ---
Exam(s) US PELVIS EXAM: US PELVIS CLINICAL HISTORY: pelvic pain TECHNIQUE: Transabdominal and transvaginal imaging was performed using standard protocol. COMPARISON: No exams were available for comparison FINDINGS: UTERUS: Anteverted. 18.7 x 6.3 by 14.1 cm Endometrium: 10 mm Myometrium: Unremarkable. Cervix: Unremarkable. OVARIES: Right: Cyst or mass: None. Left: Cyst or mass: None. DOPPLER: Color: Symmetric and uniform flow to both ovaries. No hyperemia. A focus of echogenic thrombus is noted in a right-sided pelvic vein in the right adnexal region which appears mildly dilated. The left-sided corresponding pelvic veins are not dilated and does not cont ain thrombus. CUL-DE-SAC: Free fluid: None. IMPRESSION: 1. uterus with endometrial stripe within normal limits. 2. Unremarkable bilateral ovaries. 3. Nonocclusive echogenic thrombus a right-sided pelvic vein, in the adnexal region. Findings called to Aleyda Lanza, emergency department provider. DATA REPOSITORY:
[2022-12-02 16:02] VITALS: BP 152/89; PULSE 70; RESP 20; TEMP 36.7; O2SAT 98
--- NOTE | 2022-12-02 16:15 | DI.CT_ITS ---
Exam(s) CT ABDOMEN PELVIS W EXAM: CT ABDOMEN PELVIS W CLINICAL HISTORY: abdominal pain, post 3 days, upper abdomina TECHNIQUE: Imaging Protocol: Axial computed tomography images with coronal and sagittal reformatted images were created and reviewed CONTRAST MATERIAL: Intravenous: Omnipaque 350 Contrast volume:100 mL Oral: No COMPARISON: No exams were available for comparison FINDINGS: ABDOMEN: Lung Bases: Normal where visualized. Liver: Normal density. No measurable mass. Portal, Superior Mesenteric, and Splenic Veins: Unremarkable. Gallbladder and Biliary Tract: Cholelithiasis. No biliary ductal dilatation. Pancreas: Normal density, no abnormal calcifications or inflammatory process. Spleen: Normal. Adrenals: No masses seen. Kidneys: Normal size, contour and axis. Bilateral nephrolithiasis. No hydronephrosis. There are shelley ateral simple renal cysts. No follow-up is recommended. There is a retroaortic left renal vein. Abdominal Aorta: Abdominal portion non-dilated. Bowel: No obstruction or bowel wall thickening. No evidence of bowel obstruction. There is a moderat e amount of stool throughout the colon. Peritoneal Cavity: No ascites, collection or mesenteric inflammatory response. No free air. Lymph Nodes: Within normal limits. Bones: Within normal limits for the patient's age. Soft Tissues: Unremarkable. PELVIS: Bladder: Symmetric distention, no gross wall thickening. Reproductive Organs: There is an enlarged uterus present. There is a large area of decrea sed density seen on the right side of the uterine fundus. Mildly prominent arteries and veins are se en within the myometrium in this area. No fluid collection or hematoma is definitely appreciated. T here are mildly prominent pelvic veins particularly on the right. The cervix also appears edematous. Lymph Nodes: Within normal limits. Bones: Within normal limits for the patient's age. IMPRESSION: 1. Enlarged uterus. There is a large area of decreased density in the right uterine fundu s. The patient has a known pelvic vein thrombosis seen on the ultrasound performed today. The findi ngs in the uterus may be due to venous obstruction or infarction. Consider follow-up ultrasound of t he pelvis depending on the clinical scenario. 2. Bilateral nephrolithiasis. No evidence of ureterolithiasis. 3. Cholelithiasis. No biliary ductal dilatation. 4. Moderate amount of stool in the colon which may represent constipation. RADIATION DOSE DELIVERED: 789.53mGy.cm Total DLP DATA REPOSITORY: All CT scans at this facility are submitted to the National Radiology Data Registry (NRDR) Dose Index Registry (DIR) with the [employer] ([employer]). RADIATION OPTIMIZATION: All CT scans at this facility use at least one of these dose optimization te chniques: automated exposure control; mA and/or kV adjustment per patient size (includes targeted exa ms where dose is matched to clinical indication); or iterative reconstruction.
[2022-12-02] MEDS: Omnipaque 350 MG/ML 100 ML BTL IJ (16:34)
[2022-12-02] MEDS: Normal Saline - Diluent 50 ML VIAL IJ (16:34)
[2022-12-02] MEDS: Lactated Ringers 1,000 ML 1000 ML IV (17:00)
--- NOTE | 2022-12-02 17:41 | DI.VRAD_ITS ---
Addendum created by Renée Gaines MD on 12/02/2022 5:40:41 PM EDT: THIS REPORT CONTAINS FINDINGS THAT MAY BE CRITICAL TO PATIENT CARE. The findings were verbally communicated via telephone conference with Aleyda Lanza at 5:40 PM EDT on 12/02/2022. The findings were acknowledged and understood. Initial report created on 12/02/2022 5:40:28 PM EDT: PROCEDURE INFORMATION: Exam: CT Abdomen And Pelvis With Contrast Exam date and time: 12/02/2022 4:56 PM Age: 47 years old Clinical indication: Other: Abdominal pain, post 3 days, upper abdominal TECHNIQUE: Imaging protocol: Computed tomography of the abdomen and pelvis with contrast. Contrast material: OMNIPAQUE 350; Contrast volume: 100 ml; Contrast route: INTRAVENOUS (IV); COMPARISON: US PELVIS 12/02/2022 4:07 PM FINDINGS: Liver: Normal. No mass. Gallbladder and bile ducts: Tiny calcified gallstone. No ductal dilation. Pancreas: Normal. No ductal dilation. Spleen: Normal. No splenomegaly. Adrenal glands: Normal. No mass. Kidneys and ureters: Single tiny nonobstructing stones in both kidneys. Benign bilateral renal cysts. Mild bilateral hydronephrosis and ureterectasis, likely caused by the enlarged uterus. Stomach and bowel: Large amount of stool in the colon. Mildly distended fluid and gas filled loops of small bowel in the upper abdomen. No obstruction. No mucosal thickening. Appendix: No evidence of appendicitis. Intraperitoneal space: Unremarkable. No free air. No significant fluid collection. Vasculature: See Reproductive finding. Lymph nodes: Unremarkable. No enlarged lymph nodes. Urinary bladder: Unremarkable as visualized. Reproductive: Uterine enlargement consistent with 3 days . On the right side of the fundus there is a large area of decreased density consistent with edema. In this area of decreased density there are prominent arteries and veins. No fluid collection or hematoma is identified. This could be due to vascular congestion, or infarction. The ultrasound from today showed nonocclusive thrombus in a right adnexal vein. That structure is not identifiable on the CT but the pelvic veins are prominent bilaterally, slightly greater on the right. The uterine cervix is also edematous. Bones/joints: Unremarkable. No acute fracture. Soft tissues: See Reproductive finding. IMPRESSION: 1. Large area of decreased density in the right uterine fundus 3 days in setting of known pelvic vein thrombosis could be due to edema related to venous obstruction or infarction. Consider follow-up ultrasound depending on the clinical scenario 2. Tiny nonobstructing stones in both kidneys and mild bilateral hydronephrosis without evidence of distal ureteral stone 3. Cholelithiasis 4. Large amount of stool in the colon and mildly distended loops of small bowel in the upper abdomen Dictated and Authenticated by: Renée Gaines MD. Ordering:MILE Maynard MD
[2022-12-02 17:52] LABS: Bilirubin Negative (Negative); Blood Moderate (Negative); Clarity Clear (Clear); Glucose Negative (Negative); Ketones Negative (Negative); Leukocyte Esterase Negative (Negative); Nitrite Negative (Negative); Specific Gravity 1.015 (1.005-1.025); Urobilinogen 0.2 mg/dL (Up to 0.2); pH 7.5 (5-8)
[2022-12-02 18:08] LABS: Abs Immature Grans 0.05 10^3/uL (0.0-0.06); Absolute Basophil Count 0.04 10^3/uL (0.0-0.2); Absolute Eosinophil Count 0.18 10^3/uL (0.0-0.7); Absolute Lymphocyte Count 1.87 10^3/uL (1.2-3.4); Absolute Monocyte Count 0.48 10^3/uL (0.1-0.8); Absolute Neutrophil Count 7.33 10^3/uL (1.2-6.7); Basophils % 0.4; Eosinophils % 1.8; HCT 31.3 % (36.0-46.0); HGB 10.7 g/dL (11.2-15.7); Immature Grans % 0.5; Lymphocytes % 18.8; MCH 30.7 pg (27.0-33.0); MCHC 34.2 % (32.0-36.0); MCV 90 fL (80-95); MPV 9.6 fL (8.0-11.0); Monocytes % 4.8; Neutrophils % 73.7; Platelet Count 271 10^3/uL (130-400); RBC 3.49 10^6/uL (3.93-5.22); RDW 14.6 % (11.7-14.6); RDW-SD 46.4 fL; WBC 9.95 10^3/uL (4.4-10.8)
--- NOTE | 2022-12-02 18:11 | OBCE_ITS ---
Date of service: 12/02/22 Time of Service: 17:00 Assessment and Plan Assessment and plan (1) Thrombosis of pelvic vein: Status: Acute Assessment and plan: This may have been an incidental finding. No significant pain on abdominal examination. No evidence of infection indicating septic pelvic thrombophlebitis. Discussed situation with M - Dr. Lakhani - and he recommend anticoagulation. Will plan to start Lovenox due to her breast-feeding status. (2) Abdominal pain: Status: Acute Assessment and plan: Her primary epigastric pain seems likely unrelated to the finding of the pelvic vein thrombis - more likely related to retained stool. Awaiting lab results. Please call with any further concerns or questions. (3) H/O vaginal after : Status: Acute Assessment and plan: Routine pp care (4) Gestational hypertension: Assessment and plan: Will schedule a BP check at [facility] on Tuesday History of Present Illness History of Present Illness Chief Complaint: abdominal pain Narrative: Pt c/o upper abdominal pain since discharge from [facility] 3 days ago. She says it c omes in waves. Sometimes she feels fine then when it hits she feels a bit nauseous and has upper abdominal pressure. She says she vomitted x1 a couple days after delivery. She reports mild pelvic pain/cramping and minimal vaginal bleeding, no foul-smelling discharge. She is breast-feeding without difficulty. She delivered at [facility] due to GHTN with a need for an induction and her h/o a prior CS. She had an NVD with delayed delivery of the placenta and 900ml EBL. She returne to [facility] yesterday due to concerns with the baby and had her BP checked there and it was normal. Review of Systems Constitutional Constitutional: Denies chills and Denies fever(s) Gastrointestinal Gastrointestinal: Reports as per HPI Genitourinary Genitourinary: Reports as per HPI Musculoskeletal Musculoskeletal: Reports as per HPI Comments: She drove herself to the ED Psychiatric Psychiatric: Reports system reviewed and no additional complaints, except as documented PFSH All Active Problems (Updated 12/02/22 @ 18:18 by Irma Trejo MD) Thrombosis of pelvic vein (Acute) Abdominal pain (Acute) H/O vaginal after (Acute ~11/2022) Major depressive disorder (Chronic) Generalized anxiety disorder (Acute) Medical History (Updated 12/02/22 @ 18:18 by Irma Trejo MD) Breast lump Cervical dysplasia Family history of breast cancer Family history of rheumatoid arthritis Family history of thyroid disease pt's mother and mgm Fibrocystic disease of both breasts Gestational hypertension Hypothyroidism during Perioral dermatitis on the face Right hip pain Tear of cruciate ligament of knee TSH elevation Surgical History (Updated 12/02/22 @ 18:18 by Irma Trejo MD) H/O arthroscopy of knee Left knee ACL reconstruction H/O section (~2005) H/O cone biopsy of cervix (~2000) H/O oophorectomy History of carpal tunnel release endoscopic x2 History of loop electrosurgical excision procedure (LEEP) cervical dysplasia History of removal of ovarian cyst right Hx of breast biopsy age 22 years- left and right Previous section Family History Mother Depression Cancer LYMPHOMA Osteoporosis Hypothyroid Rheumatoid aortitis Thyroid goiter Father Prostate cancer Hypertension Son Asthma ADHD Daughter Asthma Maternal Grandfather , 80's No problems noted. Paternal Grandfather , 90's Depression Hyperlipidemia Stroke Paternal Grandmother Heart disease Hypertension Cancer Skin Cancer Maternal Grandmother Congestive heart failure Heart disease AFIB Osteoporosis Hypothyroid Rheumatoid aortitis Maternal Aunt Breast cancer Maternal Aunt Breast cancer Social History Smoking/Tobacco Use Status: Never Second Hand Exposure: Yes Smoking risk assessment performed?: Yes Alcohol Intake: never Drug use: Never Substance use type: does not use Caregiver/Support person: No Household members: spouse and children Housing: house Communication Needs: None Do you need help understanding health information?: Never Pets and animals: Yes Pets and animals: dog(s), fish and hamster(s) Sexually active: Yes Do you think of yourself as: straight/heterosexual Current gender identity: female What is your relationship status?: How often do you talk on the phone with friends or family?: twice per week How often do you get together with friends or relatives?: once per week How often do you attend anglican or yarsanism services?: 1-3 times per year Do you belong to any clubs or organized social groups?: no Panel score (0-1 are the most socially isolated patients): 2 What type of physical activity do you participate in: walking, bicycling, swimming and other Details: HIKING, ROWING Duration: 45-60 minutes/day Frequency: daily Justina/Pentecostal: No preference Special justina needs: No Seatbelt use: always Helmet use: Yes Helmet use: always Drive intox or ride w/intox local combination truck driver: No Do you feel safe at home: Yes Do you feel safe in your relationship?: Yes History History 3 Para 2 Hx # Term Pregnancies 2 Multiple births Hx # Pregnancies Ectopic pregnancies AB induced Hx Number of Living Children 2 AB spontaneous Past Pregnancies Del. Date GA/Weeks # Preg Succ Route Wgt Sex Labor Lgth Anesth esia Location Prov Complic 04/27/06 9 No Yes 6 lb 9 oz [place] 04/23/11 41 No Yes vaginal 8 lb 2 oz Female stenotic cerv ix due to LEEP. 8 hours [place] Delivery Date: 04/27/06 Last Updated by: Jaclyn Holman CNM unsuccessful version with the next day for breech. Residual tailbone pain. Delivery Date: 04/23/11 Last Updated by: Jaclyn Holman CNM IOL and Exam Narrative Exam Narrative: Comfortable, moving without difficulty. NAD Const General: cooperative, comfortable, no acute distress and well groomed Orientation: alert, awake and oriented x3 HENMT Head: normocephalic and atraumatic GI Other: Upper abdomen diffusely tender to palpation but more in the epigastric region. Minimal tenderness in the lower abdomen as expected 4 days pp. Fundus palpated just below the umbilicus. Fundus only mildly tender. Uterus mobile and minimally tender. No significant lower lateral tenderness. Other: Pelvic exam deferred due to lack of concerning pelvic sxms. Results Last Vital Signs Temp 98.0 F 12/02/22 16:02 Pulse 70 12/02/22 16:02 Resp 20 12/02/22 16:02 BP 152/89 H 12/02/22 16:02 Pulse Ox 98 12/02/22 16:02 Labs 12/02/22 17:58 12/02/22 17:58 Labs: Laboratory Results - last 24 hr 12/02/22 17:33 Urine Color Yellow Urine Clarity Clear Urine pH 7.5 Ur Specific [place] 1.015 Urine Protein Negative Urine Ketones Negative Urine Blood Moderate H Urine Nitrite Negative Urine Bilirubin Negative Urine Urobilinogen 0.2 Ur Leukocyte Esterase Negative Urine Glucose Negative Imaging Imaging Studies: Right pelvic vein non-obstructing thrombus in the adnexal region. Uterus enlarged with a normal appearing endometrium.
[2022-12-02 18:12] LABS: Bacteria Few HPF (Negative); C & S Indicated? No; Casts Negative LPF (Negative); Crystals Negative HPF (Negative); Epithelial Cells Few HPF (Negative); Mucus Negative (Negative); Other Cells Few Transitional (Negative); WBC 0-2 HPF (0-5)
[2022-12-02 18:27] LABS: ALT 37 U/L (14-59); AST 29 U/L (15-37); Albumin 2.3 g/dL (3.4-5.0); Alkaline Phosphatase 119 U/L (46-116); Anion Gap 6.3 mmol/L (3-11); BUN 18 mg/dL (7-18); Bilirubin, Total 0.2 mg/dL (0.2-1.0); CO2 25.7 mmol/L (21.0-32.0); CREATININE 0.8 mg/dL (0.55-1.02); Calcium 8.3 mg/dL (8.5-10.1); Chloride 104 mmol/L (98-107); Estimated GFR 92.54 (mL/min/1.73m2); Glucose 82 mg/dL (74-106); Lipase 47 U/L (16-77); Potassium 3.8 mmol/L (3.5-5.1); Sodium 136 mmol/L (136-145); Total Protein 5.8 g/dL (6.4-8.2)
--- NOTE | 2022-12-02 18:46 | NUR.NOTE ---
Nursing Note: Referral faxed to PCP for DVT on lovenox/ next week.
[2022-12-02] MEDS: Enoxaparin 60 MG/0.6 ML SYR 70 MG SC ×2 (18:53→18:54)
--- NOTE | 2022-12-02 18:55 | NUR.NOTE ---
Aleyda HERNANDEZ ordered a lower dose of lovenox due to dosage availability. 70 mg was initially ordered, but only 60 mg given. one extra 60 mg dose given for home use in the morning and patient did the first injection herself with this nurse's direction. patient return demonstrated without difficulty.
[2022-12-02 19:18] VITALS: BP 158/84; PULSE 66; RESP 18; O2SAT 98
--- NOTE | 2022-12-02 19:32 | W.ED.GENAD ---
Discharge Plan Disposition Patient Disposition: Home Condition: Stable Discharge Details Clinical Impression: Thrombosis of pelvic vein, Abdominal pain, Cholelithiasis Primary Care Provider: Cristhian Dawkins ED Provider: Aleyda Lanza Home Meds and New Rx's Prescriptions: New ondansetron 4 mg tablet,disintegrating 4 mg PO DAILY 4 Days Qty: 10 0RF docusate sodium [Colace] 100 mg capsule 100 mg PO BID Qty: 20 0RF enoxaparin [Lovenox] 60 mg/0.6 mL syringe 60 mg subcut Q12H Qty: 12 0RF Continued glucosamine sulfate [Glucosamine] 500 mg tablet 500 mg PO DAILY Rx Instructions: administer with a meal Fish Oil 100-160-1,000 mg capsule PO famotidine 10 mg tablet 10 mg PO QHS iron gluconate-vit B cplx-mins Tablet 1 tab PO DAILY Patient Comments: 10/21/22- pt is taking Joy Iron which has 9 mg ferrous gluconate in 2 tsp. recommended doseage 2 tsp BID, pt states is only taking 2 tsp daily. cholecalciferol (vitamin D3) 25 mcg (1,000 unit) capsule 25 mcg PO DAILY albuterol sulfate [ProAir HFA] 90 mcg/actuation HFA aerosol inhaler 1 puff inhalation ONCE metronidazole 0.75 % cream 1 applic topical DAILY Qty: 45 1RF levothyroxine 25 mcg tablet 25 mcg PO DAILY Qty: 30 5RF bupropion HCl [Wellbutrin SR] 100 mg tablet sustained-release 12 hr 100 mg PO QAM Qty: 90 3RF fluoxetine [Prozac] 20 mg capsule 20 mg PO DAILY Qty: 90 3RF ondansetron HCl 8 mg tablet 8 mg PO Q8H Qty: 20 1RF acetaminophen 325 mg capsule 975 mg PO Q8H PRN ibuprofen 800 mg tablet 800 mg PO Q8H PRN polyethylene glycol 3350 [Miralax] 17 gram/dose powder 17 g PO DAILY [id number] 1 mg Tablet 1 tab PO DAILY Discharge Instructions Instructions: Constipation (DC), Deep Vein Thrombosis (ED), Abdominal Pain (ED) Additional Instructions: Use the Lovenox as prescribed, 1 injection twice daily, you will likely be on this for the next 3 months, I do recommend following up with your doctor for further direction and discontinuation at that time I recommend restarting the Colace and MiraLAX If you hit your head or have any injury you should be reassessed immediately as Lovenox can make you bleed more easily If you have increased bleeding vaginally or from any other source, I do recommend reassessment immediately Breast-feed while taking you I am writing you for Zofran, please take this as needed for nausea Please follow-up with OB as indicated and return immediately should you have worsening complaints Referrals: Irma Trejo MD [ [facility] STAFF PHYSICIAN] - Cristhian Dawkins SOFTWARE SALES CONSULTANT [Primary Care Provider] - Medical Decision Making This 37-year-old female appears well, she presents with report of some suprapubic tenderness in the state She had an ultrasound which does not show significant intrauterine abnormality but patient does have a nonocclusive thrombus in the pelvic vein Dr. Heck, VICE PRESIDENT [employer]CTION presents to the ED for consultation, she does not feel strongly that the patient has endometritis or any intrauterine infection clinically Please see her documentation but the recommendation for the pelvic vein thrombosis cyst is to initiate Lovenox, this is confirmed with pharmacy, patient is actively breast-feeding and this is the safest regimen for her Training was initiated in the emergency department and she is placed on Lovenox for home She is referred back to her primary care physician She is hemodynamically stable, CBC was compared and improved significantly hemoglobin 10.7 up from 9.9 She has no significant active bleeding and did not undergo section Safety was confirmed with [employer] Her blood pressure initially was mildly elevated, repeat blood pressure 144/77 She is in no acute distress at time of discharge home She is encouraged to start Lovenox She also has increased stool burden on CT scan, this was ordered at the request of VICE PRESIDENT [employer], there is no other significant acute abnormality per radiology interpretation my review We will place on MiraLAX and Colace We will give Zofran as needed for nausea Discharged home in stable condition with stable vitals No proteinuria on urinalysis Will need urine rechecked once there is no residual vaginal bleeding Return precautions reviewed and patient expressed understanding is Medical Records Medical records reviewed: Yes I reviewed the patient's medical records. Lab Data Lab results reviewed: Yes I reviewed the patient's lab results. HPI General Date/Time Provider Initiated Documentation: 12/02/22 15:51. HPI Narrative: This 47-year-old female presents with abdominal pain suprapubically. She is 3 days for reportedly uncomplicated vaginal delivery. She has had improved vaginal bleeding. She denies any urinary symptoms. She is actively breast-feeding. She denies any purulent drainage vaginally. Denies any chest pain or shortness of breath. Denies any peripheral edema. States that she did have gestational hypertension and is not currently taking medications. Denies any headache or dizziness. She does state that she had retained placenta and so she had uterine massage which was rather uncomfortable for patient. She states she did have this pain at discharge but is not improved as was predicted. She has had bowel movement since being discharged per patient. Related Data Home Medications Medication Instructions Recorded Confirmed albuterol sulfate 90 mcg/actuation 1 puff inhalation ONCE 02/07/21 12/02/22 aerosol inhaler (ProAir HFA) cholecalciferol (vitamin D3) 25 25 mcg PO DAILY 02/07/21 12/02/22 mcg (1,000 unit) capsule metronidazole 0.75 % topical cream 1 applic topical DAILY #45 grams 12/23/21 12/02/22 glucosamine sulfate 500 mg tablet 500 mg PO DAILY 04/06/22 12/02/22 (Glucosamine) omega 2-yup-eat-fish oil 100 cap PO 04/06/22 11/05/22 mg-160 mg-1,000 mg capsule (Fish Oil) levothyroxine 25 mcg tablet 25 mcg PO DAILY #30 tabs 06/21/22 12/02/22 bupropion HCl 100 mg tablet,12 hr 100 mg PO QAM #90 tabs 06/24/22 12/02/22 sustained-release (Wellbutrin SR) fluoxetine 20 mg capsule (Prozac) 20 mg PO DAILY #90 caps 06/24/22 12/02/22 [id number] 1 mg 1 tab PO DAILY 07/01/22 12/02/22 tablet famotidine 10 mg tablet 10 mg PO QHS 10/13/22 12/02/22 ferrous gluconate-vit B 1 tab PO DAILY 10/21/22 11/05/22 complex-minerals tablet ondansetron HCl 8 mg tablet 8 mg PO Q8H #20 tabs 10/26/22 12/02/22 acetaminophen 325 mg capsule 975 mg PO Q8H PRN 12/02/22 12/02/22 docusate sodium 100 mg capsule 100 mg PO BID #20 caps 12/02/22 (Colace) enoxaparin 60 mg/0.6 mL 60 mg (0.6 mL) subcut Q12H #12 mL 12/02/22 subcutaneous syringe (Lovenox) ibuprofen 800 mg tablet 800 mg PO Q8H PRN 12/02/22 12/02/22 ondansetron 4 mg disintegrating 4 mg PO DAILY 4 days #10 tabs 12/02/22 tablet polyethylene glycol 3350 17 17 g PO DAILY 12/02/22 12/02/22 gram/dose oral powder (Miralax) Previous Rx's Medication Instructions Recorded metronidazole 0.75 % topical cream 1 applic topical DAILY #45 grams 12/23/21 levothyroxine 25 mcg tablet 25 mcg PO DAILY #30 tabs 06/21/22 bupropion HCl 100 mg tablet,12 hr 100 mg PO QAM #90 tabs 06/24/22 sustained-release (Wellbutrin SR) fluoxetine 20 mg capsule (Prozac) 20 mg PO DAILY #90 caps 06/24/22 ondansetron HCl 8 mg tablet 8 mg PO Q8H #20 tabs 10/26/22 docusate sodium 100 mg capsule 100 mg PO BID #20 caps 12/02/22 (Colace) enoxaparin 60 mg/0.6 mL 60 mg (0.6 mL) subcut Q12H #12 mL 12/02/22 subcutaneous syringe (Lovenox) ondansetron 4 mg disintegrating 4 mg PO DAILY 4 days #10 tabs 12/02/22 tablet Allergies Allergy/AdvReac Type Severity Reaction Status Date / Time latex Allergy Unknown Verified 12/02/22 17:13 Penicillins Allergy mild rash Verified 12/02/22 17:13 Sulfa (Sulfonamide Allergy mild rash Verified 12/02/22 17:13 Antibiotics) General Stated Complaint: Abd Prob ZACHARY: 3 PFSH All Active Problems (Updated 12/02/22 @ 18:42 by DAVID Allen) Major depressive disorder (Chronic) Generalized anxiety disorder (Acute) H/O vaginal after (Acute ~11/2022) Abdominal pain (Acute) Thrombosis of pelvic vein (Acute) Cholelithiasis (Acute) Medical History (Updated 12/02/22 @ 18:42 by DAVID Allen) Breast lump Cervical dysplasia Family history of breast cancer Family history of rheumatoid arthritis Family history of thyroid disease pt's mother and mgm Fibrocystic disease of both breasts Gestational hypertension Hypothyroidism during Perioral dermatitis on the face Right hip pain Tear of cruciate ligament of knee TSH elevation Surgical History (Updated 12/02/22 @ 18:18 by Irma Trejo MD) H/O arthroscopy of knee Left knee ACL reconstruction H/O section (~2005) H/O cone biopsy of cervix (~2000) H/O oophorectomy History of carpal tunnel release endoscopic x2 History of loop electrosurgical excision procedure (LEEP) cervical dysplasia History of removal of ovarian cyst right Hx of breast biopsy age 22 years- left and right Previous section Family History Mother Depression Cancer LYMPHOMA Osteoporosis Hypothyroid Rheumatoid aortitis Thyroid goiter Father Prostate cancer Hypertension Son Asthma ADHD Daughter Asthma Maternal Grandfather , 80's No problems noted. Paternal Grandfather , 90's Depression Hyperlipidemia Stroke Paternal Grandmother Heart disease Hypertension Cancer Skin Cancer Maternal Grandmother Congestive heart failure Heart disease AFIB Osteoporosis Hypothyroid Rheumatoid aortitis Maternal Aunt Breast cancer Maternal Aunt Breast cancer Social History Smoking/Tobacco Use Status: Never Second Hand Exposure: Yes Smoking risk assessment performed?: Yes Alcohol Intake: never Drug use: Never Substance use type: does not use Caregiver/Support person: No Household members: spouse and children Housing: house Communication Needs: None Do you need help understanding health information?: Never Pets and animals: Yes Pets and animals: dog(s), fish and hamster(s) Sexually active: Yes Do you think of yourself as: straight/heterosexual Current gender identity: female What is your relationship status?: How often do you talk on the phone with friends or family?: twice per week How often do you get together with friends or relatives?: once per week How often do you attend rastafarian or scientology services?: 1-3 times per year Do you belong to any clubs or organized social groups?: no Panel score (0-1 are the most socially isolated patients): 2 What type of physical activity do you participate in: walking, bicycling, swimming and other Details: HIKING, ROWING Duration: 45-60 minutes/day Frequency: daily Justina/Jehovah'S Witness: No preference Special justina needs: No Seatbelt use: always Helmet use: Yes Helmet use: always Drive intox or ride w/intox milk truck driver: No Do you feel safe at home: Yes Do you feel safe in your relationship?: Yes History History 3 Para 2 Hx # Term Pregnancies 2 Multiple births Hx # Pregnancies Ectopic pregnancies AB induced Hx Number of Living Children 2 AB spontaneous Past Pregnancies Del. Date GA/Weeks # Preg Succ Route Wgt Sex Labor Lgth Anesthesia Location Prov [facility] 04/27/06 9 No Yes 2976.7 g Male [place] 04/23/11 41 No Yes vaginal 3685.438 g Female stenotic cervix due to LEEP. 8 hours [place] Delivery Date: 04/27/06 Last Updated by: Jaclyn Holman CNM unsuccessful version with the next day for breech. Residual tailbone pain. Delivery Date: 04/23/11 Last Updated by: Jaclyn Holman CNM IOL and Exam Const General: cooperative, comfortable and no acute distress Eyes Pupils: PERRL Resp Effort & Inspection: normal respiratory effort Auscultation: clear to auscultation bilaterally Cardio Rate: regular rate Rhythm: regular rhythm GI Other: Enlarged uterus, mild epigastric discomfort, no rebound or guarding Neuro General: patient alert and patient oriented x3 Extrem Other: No peripheral edema Course Vital Signs Vital signs: Vital Signs Temperature 36.7 C 12/02/22 16:02 Pulse 70 12/02/22 16:02 Respiratory Rate 20 12/02/22 16:02 Blood Pressure 152/89 H 12/02/22 16:02 Pulse Oximetry 98 12/02/22 16:02 Temperature 36.7 C 12/02/22 16:02 Temperature Source Oral 12/02/22 16:02 Pulse 66 12/02/22 19:18 Respiratory Rate 18 12/02/22 19:18 Respiratory Effort Normal, Non-Labored 12/02/22 16:22 Blood Pressure 158/84 H 12/02/22 19:18 Blood Pressure Position Sitting 12/02/22 16:02 Pulse Oximetry 98 12/02/22 19:18 Oxygen Delivery Method Room Air 12/02/22 16:02 Oxygen Flow Rate 0 12/02/22 16:02 Pain Level 6 12/02/22 17:11 Lab/Test Results Lab/Test Results: Laboratory Tests Range/Units 12/02/22 12/02/22 12/02/22 17:33 17:58 17:58 WBC (4.4-10.8) 10^3/uL 9.95 RBC (3.93-5.22) 10^6/uL 3.49 L Hgb (11.2-15.7) g/dL 10.7 L Hct (36.0-46.0) % 31.3 L MCV (80-95) fL 90 MCH (27.0-33.0) pg 30.7 MCHC (32.0-36.0) % 34.2 RDW (11.7-14.6) % 14.6 Plt Count (130-400) 10^3/uL 271 MPV (8.0-11.0) fL 9.6 Immature Gran % 0.5 Neutrophils % 73.7 Lymphocytes % 18.8 Monocytes % 4.8 Eosinophils % 1.8 Basophils % 0.4 Nucleated RBC % (0.0-0.3) % 0.0 Absolute Neutrophils (1.2-6.7) 10^3/uL 7.33 H Absolute Lymphocytes (1.2-3.4) 10^3/uL 1.87 Absolute Monocytes (0.1-0.8) 10^3/uL 0.48 Absolute Eosinophils (0.0-0.7) 10^3/uL 0.18 Absolute Basophils (0.0-0.2) 10^3/uL 0.04 Sodium (136-145) mmol/L 136 Potassium (3.5-5.1) mmol/L 3.8 Chloride (98-107) mmol/L 104 Carbon Dioxide (21.0-32.0) mmol/L 25.7 Anion Gap (3-11) mmol/L 6.3 BUN (7-18) mg/dL 18 Creatinine (0.55-1.02) mg/dL 0.8 Est GFR (CKD-EPI 2020) (mL/min/1.73m2) 92.54 Glucose (74-106) mg/dL 82 Calcium (8.5-10.1) mg/dL 8.3 L Total Bilirubin (0.2-1.0) mg/dL 0.2 AST (15-37) U/L 29 ALT (14-59) U/L 37 Alkaline Phosphatase (46-116) U/L 119 H Total Protein (6.4-8.2) g/dL 5.8 L Albumin (3.4-5.0) g/dL 2.3 L Lipase (16-77) U/L 47 Urine Color (Yellow) Yellow Urine Clarity (Clear) Clear Urine pH (5-8) 7.5 Ur Specific [place] (1.005-1.025) 1.015 Urine Protein (Negative) mg/dL Negative Urine Ketones (Negative) mg/dL Negative Urine Blood (Negative) Moderate H Urine Nitrite (Negative) Negative Urine Bilirubin (Negative) Negative Urine Urobilinogen (Up to 0.2) mg/dL 0.2 Ur Leukocyte Esterase (Negative) Negative Urine RBC (0-2) HPF 5-10 H Urine WBC (0-5) HPF 0-2 Ur Epithelial Cells (Negative) HPF Few Urine Crystals (Negative) HPF Negative Urine Bacteria (Negative) HPF Few Urine Casts (Negative) LPF Negative Urine Mucus (Negative) Negative Urine Other (Negative) Few Transitional Ur Culture Indicated? No Urine Glucose (Negative) mg/dL Negative
== END 2022-12-02 19:20 | disposition home or self-care (01) ==
PROVIDERS: Emergency Provider Physician Assistant; PCP Nurse Practitioner Family
DX: I82.890 Acute embolism and thrombosis of other specified veins (principal); K80.20 Calculus of gallbladder without cholecystitis without obstruction; R03.0 Elevated blood-pressure reading, without diagnosis of hypertension; O99.43 Diseases of the circulatory system complicating the puerperium; O99.63 Diseases of the digestive system complicating the puerperium; O90.89 Other complications of the puerperium, not elsewhere classified; N85.2 Hypertrophy of uterus
CPT/HCPCS: 80053; 83690; 96360; 99285; 74177; 76856; 81003; 81015; 85025; 99284; J1650; J3490

== ENCOUNTER 2023-05-18 01:52 | Outpatient (CLI) | payer BC, SELFPAY ==
[2023-05-18 17:57] LABS: TSH (W/Ref FT4) 1.19 uIU/mL (0.36-3.74)
== END 2023-05-18 01:53 | disposition home or self-care (01) ==
LOC: LBO 01:52
PROVIDERS: PCP Nurse Practitioner Family; Visit Provider Obstetrics & Gynecology Gynecology
DX: Z83.49 Family history of other endocrine, nutritional and metabolic diseases (principal); F41.8 Other specified anxiety disorders
CPT/HCPCS: 36415; 84443

== ENCOUNTER → 2023-09-20 00:07 | Outpatient (CLI) | payer BC, SELFPAY ==
--- NOTE | 2023-09-20 07:30 | DI.US_ITS ---
Exam(s) MG MAMMO SCREENING US BREAST LT LIMITED EXAM: MAMMO SCREENING and U/S breast LT limited CLINICAL HISTORY: screening. TECHNIQUE: Craniocaudal and mediolateral oblique Full Field Digital Mammography views with Computer Aided Diagnosis followed by Tomosynthesis and left breast ultrasound. COMPARISON: Comparison is made with prior examinations. FINDINGS: Mammography/Tomosynthesis: Masses/Architectural Distortion: None seen. Microcalcifictions: No suspicious pleomorphic-type are seen. Skin Thickening/Nipple Retraction: None. Limited left breast US: Echotexture: Normal appearance of the glandular tissue. Shadowing: No suspicious foci. Cyst: There is a stable 0.4 cm cyst at the 9 o'clock position of the left breast. It is simple. Solid lesions: There is again seen a collection of cysts at the 10 o'clock position of the left breas t 5 cm from the nipple. The breast tissue in the area is also unchanged. This may represent a small lymph node. No suspicious cystic or solid masses are seen. Ductal dilation: None. IMPRESSION: 1. No evidence of malignancy is noted. 2. A six-month follow-up left breast ultrasound is recommended to document stability of the sonograph ic findings. 3. The findings were discussed with the patient on the date of the examination. BI-RADS Category 3 - 6 month - Probably Benign Finding: Recommend follow-up imaging in 6 months Breast Density - Category D - Extremely dense Breast density Category C or D implies that the patient has dense breast tissue. Dense breast tissue can make it harder to find cancer on a mammogram. Dense breast tissue is also associated with an incr eased risk of breast cancer. This information about the result of the mammogram report was provided to the patient to raise their awareness. Use this report when you speak with the patient about their risks for breast cancer, which includes their family history. At that time, you may recommend additional screening tests (Ultrasoun d or MRI) as these tests may add significant information. A negative radiographic report should not delay biopsy if a dominant or clinically suspicious mass is present. Up to ten percent of cancers are not identified on mammography. A negative report may reinforce clinical impression. Adenosis and dense breasts may obscure an underlying neoplasm. False positive reports average 6 to 10%. Patient will receive a letter notifying them of these results.
== END ==
PROVIDERS: PCP Nurse Practitioner Family; Visit Provider Obstetrics & Gynecology Gynecology
DX: Z12.31 Encounter for screening mammogram for malignant neoplasm of breast; N60.02 Solitary cyst of left breast
CPT/HCPCS: 76642; 77063; 77067

== ENCOUNTER → 2024-03-19 02:30 | Outpatient (CLI) | payer OTHER, SELFPAY ==
--- NOTE | 2024-03-19 | DI.MAMMO_ITS ---
Exam(s) US BREAST LT COMPLETE MG MAMMO DIAGNOSTIC UNI EXAM: MG MAMMO DIAGNOSTIC UNI-LEFT AND COMPLETE LEFT BREAST ULTRASOUND CLINICAL HISTORY: DIAGNOSTIC, 6 MO F/U LT BREAST ABNORMALITY,R92.8. TECHNIQUE: Unilateral LEFT BREAST CC AND MLO AND spot mammographic images were obtained with 3D gretchen synthesis technique and utilizing computer aided detection (CAD). COMPLETE LEFT BREAST ULTRASOUND was performed including all 4 quadrants as well as the retroareolar r egion. COMPARISON: Prior mammograms were reviewed, the most recent being 09/20/2023. Prior ultrasound reviewed. Most recent was 09/20/2023. FINDINGS: DIAGNOSTIC LEFT BREAST MAMMOGRAM: Fibroglandular tissue pattern is again noted be dense which somewhat decreases the sensitivity of the mammogram for finding hidden underlying lesions. There are no new obvious spiculated masses. However, there is a new group of microcalcifications in the left breast located approximately 7-8 cm in from the nipple on the MLO view and 6 cm in from the nipple on the CC view. These were not previo usly present and appear slightly pleomorphic. Stereotactic biopsy recommended. There is no new architectural distortion or skin thickening-retraction in the left breast. COMPLETE LEFT BREAST ULTRASOUND: At the 9 o'clock position there is again noted a 4 x 4 mm benign microcyst. At the 10 o'clock position there is a wider than taller slightly lobulated nodule which appears stabl e and has appearance of a probable fibroadenoma. It measures approximately 1.4 x 0.6 cm, unchanged. There are no other focal ultrasound findings in all 4 quadrants of the left breast. Scanning of the left axilla is negative for adenopathy. IMPRESSION: 1. 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 This patient forms me that she has had remote surgical removal of a fibroaden paulino from the opposite-right breast many years ago. 2. There is a new group of microcalcifications in the left breast as described above. Appears mildl y pleomorphic. Recommend stereotactic biopsy. Findings discussed phone with referring physician 03/20/2024 9:05 am BI-RADS Category 4 - Suspicious Abnormality: Biopsy should be considered Breast Density - Category D - Extremely dense Breast density Category C or D implies that the patient has dense breast tissue. Dense breast tissue can make it harder to find cancer on a mammogram. Dense breast tissue is also associated with an incr eased risk of breast cancer. This information about the result of the mammogram report was provided to the patient to raise their awareness. Use this report when you speak with the patient about their risks for breast cancer, which includes their family history. At that time, you may recommend additional screening tests (Ultrasoun d or MRI) as these tests may add significant information. A negative radiographic report should not delay biopsy if a dominant or clinically suspicious mass is present. Up to ten percent of cancers are not identified on mammography. A negative report may reinforce clinical impression. Adenosis and dense breasts may obscure an underlying neoplasm. False positive reports average 6 to 10%. Patient will receive a letter notifying them of these results.
== END ==
PROVIDERS: PCP Nurse Practitioner Family; Visit Provider Obstetrics & Gynecology
DX: R92.8 Other abnormal and inconclusive findings on diagnostic imaging of breast (principal); R92.0 Mammographic microcalcification found on diagnostic imaging of breast
CPT/HCPCS: 76642; 77061; 77065; G0279

== ENCOUNTER 2024-09-07 01:38 | Outpatient (CLI) | payer OTHER, SELFPAY ==
[2024-09-07 12:12] LABS: Abs Immature Grans 0.01 10^3/uL (0.0-0.06); Absolute Basophil Count 0.05 10^3/uL (0.0-0.2); Absolute Eosinophil Count 0.18 10^3/uL (0.0-0.7); Absolute Monocyte Count 0.38 10^3/uL (0.1-0.8); Absolute Neutrophil Count 3.49 10^3/uL (1.2-6.7); Basophils % 0.7 %; Eosinophils % 2.6 %; HCT 40.6 % (36.0-46.0); HGB 13.6 g/dL (11.2-15.7); Immature Grans % 0.1 %; Lymphocytes % 39.6 %; MCH 29.7 pg (27.0-33.0); MCHC 33.5 % (32.0-36.0); MCV 89 fL (80-95); MPV 10.7 fL (8.0-11.0); Monocytes % 5.6 %; Neutrophils % 51.4 %; Platelet Count 267 10^3/uL (130-400); RBC 4.58 10^6/uL (3.93-5.22); RDW 11.9 % (11.7-14.6); RDW-SD 38.5 fL; WBC 6.81 10^3/uL (4.4-10.8)
[2024-09-07 12:25] LABS: Iron 98 ug/dL (50-170); Total Iron Binding Capacity 385 ug/dL (250-450); Transferrin Sat 25 % (15-50)
[2024-09-07 12:57] LABS: ALT 25 U/L (14-59); AST 23 U/L (15-37); Alkaline Phosphatase 87 U/L (46-116); Anion Gap 6.5 mmol/L (3-11); BUN 14 mg/dL (7-18); CO2 30.5 mmol/L (21.0-32.0); Calcium 9.2 mg/dL (8.5-10.1); Calculated LDL 111 mg/dL (<100); Chloride 105 mmol/L (98-107); Cholesterol 203 mg/dL (<200); Estimated GFR 69.93 (mL/min/1.73m2); Ferritin 37 ng/mL (8-252); Glucose 96 mg/dL (74-106); HDL Cholesterol 78 mg/dL (40-60); Potassium 4.1 mmol/L (3.5-5.1); Sodium 142 mmol/L (136-145); TSH (W/Ref FT4) 3.83 uIU/mL (0.36-3.74); Total Protein 7.6 g/dL (6.4-8.2); Triglyceride 74 mg/dL (<150); Vitamin B12 532 pg/mL (193-986)
[2024-09-07 13:10] LABS: Folate > 20.0 ng/mL (8.6-20.0)
[2024-09-07 13:26] LABS: FREE T4 0.87 ng/dL (0.76-1.46)
== END 2024-09-07 01:39 | disposition home or self-care (01) ==
LOC: LOS 01:38
PROVIDERS: PCP Nurse Practitioner Family; Visit Provider Nurse Practitioner Family
DX: Z00.00 Encounter for general adult medical examination without abnormal findings (principal); D64.9 Anemia, unspecified; F32.9 Major depressive disorder, single episode, unspecified; F41.1 Generalized anxiety disorder; E03.9 Hypothyroidism, unspecified
CPT/HCPCS: 36415; 80053; 80061; 82607; 82728; 82746; 83540; 83550; 84439; 84443; 85025

== ENCOUNTER 2025-06-21 13:45 | Emergency (ER) | payer BC, SELFPAY ==
[2025-06-21 13:52] VITALS: BP 127/71; PULSE 68; RESP 18; TEMP 36.3; O2SAT 98
[2025-06-21 13:55] VITALS: BP 127/71; PULSE 68; RESP 18; TEMP 36.3; O2SAT 98
--- NOTE | 2025-06-21 14:00 | DI.US_ITS ---
Exam(s) US PELVIS LIMITED EXAM: US PELVIS LIMITED CLINICAL HISTORY: LLQ abd Pain. TECHNIQUE: Limited pelvic ultrasound was performed. COMPARISON: US US SOFT TISSUE EXTREMITY from 07/31/2024 FINDINGS: Request was apparently for visualization of the left adnexa. This patient has apparently had prior partial right oophorectomy for dermoid tumor. Her pain is apparently left-sided. As per request, the right ovary was not evaluated. The uterus is retroverted, measuring 7.7 cm length by 4.7 cm height by 5.7 cm wide. Endometrial thickness is 5.7 mm. There is no fluid in the endometrial canal. No obvious uterine fibroids. The left ovary is visualized and measures 2.9 x 2.6 x 3.2 cm. It appears unremarkable and contains multiple sub cm follicular cysts. It exhibits normal blood flow and there is no fluid in the left adnexa. There is also no fluid in the cul-de-sac. IMPRESSION: 1. Unremarkable appearing left ovary. 2. No free fluid. 3. Retroverted uterus which appears age-appropriate. Right adnexa was not evaluated (as per request). Technologist informs me that this patient left-sided pain appears to be more laterally on the left side than the location of the ovary. Therefore if clinically clinically indicated further study with CT scan can be performed. DATA REPOSITORY:
--- NOTE | 2025-06-21 14:05 | ED.GENADUL_ITS ---
Discharge Plan Discharge Details Chief Complaint: Abd Prob Primary Care Provider: Sarita Pedraza ED Provider: Annie Berg Home Meds and New Rx's Prescriptions: No Action glucosamine sulfate [Glucosamine] 500 mg tablet 500 mg PO DAILY Rx Instructions: administer with a meal Fish Oil 100-160-1,000 mg capsule 1 cap PO DAILY polyethylene glycol 3350 17 gram/dose powder 238 g PO ONCE Qty: 238 0RF Rx Instructions: take per colonoscopy instructions bisacodyl [Dulcolax (bisacodyl)] 5 mg tablet,delayed release (DR/EC) 5 mg PO ONCE Qty: 4 0RF Rx Instructions: take per colonoscopy instructions cholecalciferol (vitamin D3) 25 mcg (1,000 unit) capsule 25 mcg PO DAILY metronidazole 0.75 % cream 1 applic topical DAILY Qty: 45 1RF bupropion HCl 100 mg tablet sustained-release 12 hr See Rx Instructions .ROUTE .COMPLEX Qty: 90 3RF Dose Instruction: TAKE ONE TABLET BY MOUTH EVERY MORNING Rx Instructions: TAKE ONE TABLET BY MOUTH EVERY MORNING fluoxetine [Prozac] 20 mg capsule 20 mg PO DAILY Qty: 90 3RF levothyroxine 25 mcg tablet 25 mcg PO DAILY Qty: 90 3RF albuterol sulfate [ProAir HFA] 90 mcg/actuation HFA aerosol inhaler 1 puff inhalation ONCE PRN [id number] 1 mg Tablet 1 tab PO DAILY HPI General Mode of arrival: ambulatory . Date/Time Provider Initiated Documentation: 06/21/25 13:48 . Limitations to Documentation: no limitations . Information obtained by: patient, RN notes reviewed and old records reviewed . HPI Narrative: 49-year-old female presents to the ER with a chief complaint of left lower quadrant abdominal pain which began on Tuesday. She reports that has been constant since then. No radiation. Denies any nausea vomiting. She did have 1 episode of diarrhea but that has since resolved. She does have a history of C- section, and a right ovarian cyst removal in 2011 she reports states that this presents differently. On exam she does have pinpoint tenderness in her left lower quadrant. No masses or guarding noted. Abdomen is soft and nondistended. Related Data Home Medications ?Medication ?Instructions ?Recorded ?Confirmed cholecalciferol (vitamin D3) 25 25 mcg PO DAILY 05/22/ 21 10/03/25 mcg (1,000 unit) capsule glucosamine sulfate 500 mg tablet 500 mg PO DAILY 03/1906/21/25 (Glucosamine) omega 9-tnz-ahs-fish oil 100 1 cap PO DAILY 04/06/22 1 mg-160 mg-1,000 mg capsule (Fish Oil) [id number] 1 mg 1 tab PO DAILY 06/21/25 tablet metronidazole 0.75 % topical cream 1 applic topical DA USMAN #45 grams 03/03/23 06/21/25 bupropion HCl 100 mg tablet,12 hr See Rx Instructions .Route 09/06/24 06/21/25 sustained-release .COMPLEX #90 tabs fluoxetine 20 mg capsule (Prozac) 20 mg PO DAILY #90 c aps 09/06/24 06/21/25 levothyroxine 25 mcg tablet 25 mcg PO DAILY #90 tabs 1 11/07/23 06/21/25 albuterol sulfate 90 mcg/actuation 1 puff inhalation O NCE PRN 10/25/24 06/21/25 aerosol inhaler (ProAir HFA) bisacodyl 5 mg tablet,delayed 5 mg PO ONCE colonscopy bowel prep 10/25/2406/21 release (Dulcolax (bisacodyl)) #4 tabs polyethylene glycol 3350 17 238 g PO ONCE colonoscopy prep 10/25/24 06/21/25 gram/dose oral powder #238 grams Previous Rx's ?Medication ?Instructions ?Recorded metronidazole 0.75 % topical cream 1 applic topical DA USMAN #45 grams 03/03/23 bupropion HCl 100 mg tablet,12 hr See Rx Instructions .Route 09/06/24 sustained-release .COMPLEX #90 tabs fluoxetine 20 mg capsule (Prozac) 20 mg PO DAILY #90 c aps 09/06/24 levothyroxine 25 mcg tablet 25 mcg PO DAILY #90 tabs 1 11/07/23 bisacodyl 5 mg tablet,delayed 5 mg PO ONCE colonscopy bowel prep 10/25/24 release (Dulcolax (bisacodyl)) #4 tabs polyethylene glycol 3350 17 238 g PO ONCE colonoscopy prep 10/25/24 gram/dose oral powder #238 grams Allergies Allergy/AdvReac Type Severity Reaction Status Date / Time latex Allergy Unknown Other (See Verified 06/21/25 13:56 Comment) Sulfa (Sulfonamide Allergy mild rash Verified 06/21/25 13:56 Antibiotics) General Stated Complaint: Abd Prob ZACHARY: 3 Review of Systems All systems reviewed & are unremarkable except as noted in HPI and below Gastrointestinal Gastrointestinal: Reports as per HPI and Reports abdominal pain Exam Narrative Exam Narrative: Constitutional: Alert and oriented x3. Appears stated age. Normal body habitus. Head: Normocephalic, no trauma. Eyes: Pupils PERRL, Red reflex noted, EOM's intact. Eyelids symmetrical without lesions, discharge, or swelling. ENT: Bilateral TM's WNL, External ear normal to inspection, no mastoid TTP, swelling, or erythema, Nasal turbinates WNL, no nasal discharge. Normal dentition, Posterior pharynx WNL, no exudate. Chest: RRR, Normal S1, S2, distal pulses intact. Resp: Lungs clear to auscultation bilaterally, no wheezes, rales, or rhonchi. Abdomen: Soft, non-distended, Normoactive bowel sounds all 4 quads. Musculoskeletal: Normal gait, Moves all 4 extremities without difficulty. Skin: No suspicious rashes or lesions. Capillary refill less than 2 sec. Neurologic: Cranial nerves II-XII intact. Alert and oriented x 3. Motor: No deficits noted. Sensory: Intact bilaterally all 4 extremities. Hematologic/Lymphatic: No ecchymosis, no lymphadenopathy. Course Vital Signs Vital signs: Vital Signs Temperature 36.3 C L 06/21/25 13:52 Pulse 68 06/21/25 13:52 Respiratory Rate 18 06/21/25 13:52 Blood Pressure 127/71 06/21/25 13:52 Pulse Oximetry 98 06/21/25 13:52 Temperature 36.3 C L 06/21/25 13:55 Pulse 68 06/21/25 13:55 Respiratory Rate 18 06/21/25 13:55 Blood Pressure 127/71 06/21/25 13:55 Pulse Oximetry 98 06/21/25 13:55 Pain Level 4 06/21/25 13:55 Medical Decision Making 49-year-old female presents to the ER with a chief complaint of left lower quadrant abdominal pain which began on Tuesday. She reports that has been constant since then. No radiation. Denies any nausea vomiting. She did have 1 episode of diarrhea but that has since resolved. She does have a history of C- section, and a right ovarian cyst removal in 2011 she reports states that this presents differently. On exam she does have pinpoint tenderness in her left lower quadrant. No masses or guarding noted. Abdomen is soft and nondistended. CBC CMP lipase magnesium urinalysis [facility] ordered ultrasound pelvic and transvaginal non-OB ordered. Differential diagnosis includes not limited to gastroenteritis, ovarian cyst, UTI, diverticulitis. No leukocytosis, CBC CMP and urinalysis are all largely within normal limits. Care is to be handed off to oncoming provider Aleyda Lanza pending ultrasound result and further evaluation and workup if needed. Patient case and details were discussed with her. This text was generated using [employer]ling[employer] dictation system, please disregard any oddities of phrase or misspellings. Lab Data Lab results reviewed: Yes I reviewed the patient's lab results. Labs: Laboratory Tests Range/Units 06/21/25 06/21/25 14:03 14:20 WBC (4.4-10.8) 10^3/uL 7.79 RBC (3.93-5.22) 10^6/uL 4.42 Hgb (11.2-15.7) g/dL 12.9 Hct (36.0-46.0) % 38.2 MCV (80-95) fL 86 MCH (27.0-33.0) pg 29.2 MCHC (32.0-36.0) % 33.8 RDW (11.7-14.6) % 12.0 Plt Count (130-400) 10^3/uL 283 MPV (8.0-11.0) fL 9.6 Immature Gran % % 0.3 Neutrophils % % 59.4 Lymphocytes % % 32.2 Monocytes % % 5.8 Eosinophils % % 1.9 Basophils % % 0.4 Nucleated RBC % (0.0-0.3) % 0.0 Absolute Neutrophils (1.2-6.7) 10^3/uL 4.63 Absolute Lymphocytes (1.2-3.4) 10^3/uL 2.51 Absolute Monocytes (0.1-0.8) 10^3/uL 0.45 Absolute Eosinophils (0.0-0.7) 10^3/uL 0.15 Absolute Basophils (0.0-0.2) 10^3/uL 0.03 Sodium (136-145) mmol/L 139 Potassium (3.5-5.1) mmol/L 3.7 Chloride (98-107) mmol/L 102 Carbon Dioxide (21.0-32.0) mmol/L 27.6 Anion Gap (3-11) mmol/L 9.4 BUN (7-18) mg/dL 15 Creatinine (0.55-1.02) mg/dL 0.8 Est GFR (CKD-EPI 2020) (mL/min/1.73m2) 91.40 Glucose (74-106) mg/dL 94 Calcium (8.5-10.1) mg/dL 8.9 Magnesium (1.8-2.4) mg/dL 2.1 Total Bilirubin (0.2-1.0) mg/dL 0.3 AST (15-37) U/L 20 ALT (14-59) U/L 27 Alkaline Phosphatase (46-116) U/L 80 Total Protein (6.4-8.2) g/dL 7.4 Albumin (3.4-5.0) g/dL 3.9 Lipase (<78) U/L 64 Urine Color (Yellow) Yellow Urine Clarity (Clear) Clear Urine pH (5-8) 6.5 Ur Specific [place] (1.005-1.025) 1.025 Urine Protein (Neg-Trace) mg/dL Negative Urine Ketones (Negative) mg/dL Negative Urine Blood (Negative) Negative Urine Nitrite (Negative) Negative Urine Bilirubin (Negative) Negative Urine Urobilinogen (Up to 0.2) mg/dL 0.2 Ur Leukocyte Esterase (Negative) Negative Urine Glucose (Negative) mg/dL Negative PFSH All Active Problems Dog bite (Chronic) 2021 Hypothyroidism (acquired) (Acute) Major depressive disorder (Chronic) Generalized anxiety disorder (Acute) Medical History Family history of hypothyroidism Left breast mass Dx in [place]. Followed with Mammo and MRI. Benign Cholelithiasis Thrombosis of pelvic vein 11/2022 . Rx for Lovenox x12 weeks. Resolved. H/O vaginal after (~11/2022) 11/28/2022 at 30 7W6D EGA. F. 8 lb 1 oz. [facility]. Family history of rheumatoid arthritis Family history of breast cancer Fibrocystic disease of both breasts Family history of thyroid disease pt's mother and mgm Tear of cruciate ligament of knee Right hip pain Perioral dermatitis on the face Surgical History Previous section H/O arthroscopy of knee Left knee ACL reconstruction History of removal of ovarian cyst right H/O cone biopsy of cervix (~2000) H/O oophorectomy History of carpal tunnel release endoscopic x2 Hx of breast biopsy age 22 years- left and right H/O section (~2005) History of loop electrosurgical excision procedure (LEEP) cervical dysplasia Family History Mother Depression Cancer LYMPHOMA Osteoporosis Hypothyroid Rheumatoid aortitis Thyroid goiter Father Prostate cancer Hypertension Son Asthma ADHD Daughter Asthma Maternal Grandfather , 80's No problems noted. Paternal Grandfather , 90's Depression Hyperlipidemia Stroke Paternal Grandmother Heart disease Hypertension Cancer Skin Cancer Maternal Grandmother Congestive heart failure Heart disease AFIB Osteoporosis Hypothyroid Rheumatoid aortitis Maternal Aunt Breast cancer Maternal Aunt Breast cancer Social History Smoking/Tobacco Use Status: Never Second Hand Exposure: Yes Smoking risk assessment performed?: Yes Alcohol Intake: never Drug use: Never Substance use type: does not use Adopted: No Caregiver/Support person: No Foster care: No Household members: spouse and children Housing: house Number of Children: 3 number of grandchildren: 0 Communication Needs: None Education Level: master's degree Do you need help understanding health information?: Never current occupation: [employer] Pets and animals: Yes Pets and animals: dog(s) and fish Sexually active: No Do you think of yourself as: straight/heterosexual Current gender identity: female What is your relationship status?: How often do you talk on the phone with friends or family?: twice per week How often do you get together with friends or relatives?: once per week How often do you attend amish or synagogue services?: 1-3 times per year Do you belong to any clubs or organized social groups?: no Panel score (0-1 are the most socially isolated patients): 2 What type of physical activity do you participate in: walking and yoga Duration: 15-30 minutes/day Justina/Voodoo: None Special justina needs: No Agree to transfusion: Yes Seatbelt use: always Helmet use: Yes Helmet use: always Drive intox or ride w/intox hazardous materials tanker driver: No Working smoke detector in home: Yes Carbon monox detector in home: Yes Firearms in home: No Do you feel safe at home: Yes Do you feel safe in your relationship?: Yes Victim of physical abuse: No Victim of emotional abuse: No Victim of sexual abuse: No Would you like helpful sources: No History History 3 Para 3 Hx # Term Pregnancies 3 Multiple births Hx # Pregnancies Ectopic pregnancies AB induced Hx Number of Living Children 3 AB spontaneous Past Pregnancies Del. Date GA/Weeks # Preg Succ Route Wgt Sex Labor Lgth Anesth esia Location Prov Compl 04/27/06 9 No Yes 2976.7 g Male [place] 04/23/11 41 No Yes vaginal 3685.438 g Female stenotic cer vix due to LEEP. 8 hours [place] 11/28/22 38 No Yes vaginal 3657.088 g Female [facility] Delivery Date: 04/27/06 Last Updated by: Jaclyn Holman CNM unsuccessful version with the next day for breech. Residual tailbone pain. Delivery Date: 04/23/11 Last Updated by: Jaclyn Holman CNM IOL and Delivery Date: 11/28/22 Last Updated by: MD Carmen Dias- induction at [facility], delayed placental delivery with pph but no intrauterine manipulation. Non-obstructing ovarian vein thrombus noted 5 days pp - on lovenox x12wks
[2025-06-21 14:27] LABS: Glucose Negative (Negative)
[2025-06-21 14:28] LABS: Abs Immature Grans 0.02 10^3/uL (0.0-0.06); HCT 38.2 % (36.0-46.0); HGB 12.9 g/dL (11.2-15.7); Immature Grans % 0.3 %; MCH 29.2 pg (27.0-33.0); MCHC 33.8 % (32.0-36.0); MCV 86 fL (80-95); MPV 9.6 fL (8.0-11.0); Platelet Count 283 10^3/uL (130-400); RBC 4.42 10^6/uL (3.93-5.22); RDW 12.0 % (11.7-14.6); RDW-SD 38.1 fL; WBC 7.79 10^3/uL (4.4-10.8)
[2025-06-21] MEDS: Normal Saline 1,000 ML 1000 ML IV (14:40)
[2025-06-21 14:44] LABS: ALT 27 U/L (14-59); AST 20 U/L (15-37); Albumin 3.9 g/dL (3.4-5.0); Alkaline Phosphatase 80 U/L (46-116); Anion Gap 9.4 mmol/L (3-11); BUN 15 mg/dL (7-18); Bilirubin, Total 0.3 mg/dL (0.2-1.0); CO2 27.6 mmol/L (21.0-32.0); Calcium 8.9 mg/dL (8.5-10.1); Chloride 102 mmol/L (98-107); Estimated GFR 91.40 (mL/min/1.73m2); Glucose 94 mg/dL (74-106); Lipase 64 U/L (<78); Magnesium 2.1 mg/dL (1.8-2.4); Potassium 3.7 mmol/L (3.5-5.1); Sodium 139 mmol/L (136-145); Total Protein 7.4 g/dL (6.4-8.2)
[2025-06-21 16:24] VITALS: BP 118/70; PULSE 78; RESP 18; O2SAT 98
--- NOTE | 2025-06-24 17:17 | NUR.NOTE ---
Access chart to determine if a referral was done and completed. Nursing Note:
== END 2025-06-21 16:27 | disposition home or self-care (01) ==
PROVIDERS: Emergency Provider Registered Nurse Emergency; PCP Nurse Practitioner Family
DX: R10.32 Left lower quadrant pain (principal); R19.7 Diarrhea, unspecified
CPT/HCPCS: 99284 ×2; 81025; 76857; 80053; 83690; 96360; 81003; 83735; 85025

== ENCOUNTER 2025-06-26 11:00 | Outpatient (REF) | payer BC, SELFPAY ==
[2025-06-27 20:36] LABS: Campylobacter PCR Negative (Negative); Shiga Toxin PCR Negative (Negative); Shigella/Enteroinvasive Ecoli Negative (Negative)
== END 2025-06-26 11:01 | disposition home or self-care (01) ==
LOC: LBN 11:00
PROVIDERS: PCP Nurse Practitioner Family; Visit Provider Nurse Practitioner Family
DX: R19.7 Diarrhea, unspecified (principal)
CPT/HCPCS: 87015; 87269; 87272; 87505